=== PATIENT | female | born 1980 | race Caucasian/White ===

== ENCOUNTER 2018-10-26 20:51 | Inpatient (IN) | payer OTHER ==
[~2018-10-26] VITALS: Ht 162.6 cm; Wt 78.6 kg
[2018-10-26 21:32] VITALS: BP 133/79; PULSE 79; RESP 18
[2018-10-26 21:44] VITALS: Ht 162.6 cm; Wt 78.6 kg
[2018-10-26] MEDS ORDERED: DOCUSATE SODIUM 100 MG CAP PO PRN (22:00)
[2018-10-26] MEDS ORDERED: ONDANSETRON 4 MG INJ IV PRN (22:00)
[2018-10-26] MEDS ORDERED: ACETAMINOPHEN 325 MG TAB PO PRN (22:00)
[2018-10-26] MEDS ORDERED: BISACODYL (EC) 5 MG TAB PO PRN (22:00)
[2018-10-26] MEDS ORDERED: NACL 0.9% 3 ML SYG IV SCH (22:00)
--- NOTE | 2018-10-26 22:08 | HP ---
Date/Time of Note Date/Time of Note DATE: 10/26/18 TIME: 22:08 Assessment/Plan VTE Prophylaxis SCD applied (from Nsg): Yes Pharmacological prophylaxis: NA/contraindicated Pharm contraindication: low risk/ambulating Assessment/Plan Hospital Course This is a 37-year female being admitted to the telemetry floor for: #1 suspect acute hypovolemic hyponatremia: Secondary to gastrointestinal losses. Patient did receive IV fluid hydration at the transfer facility, will repeat BMP level stat and then every 4 hours. Will reinstitute fluids as indicated. Her mucous membranes are dry. Urine sodium, urine osmoles. #2 hypokalemia: Likely secondary to gastrointestinal losses. She did receive repletion prior to transfer, will repeat BMP and reassess electrolytes. #3 suspect gastroenteritis: Likely viral. She has not had any nausea vomiting or diarrhea since going to the ER. Brendafran for nausea. Will monitor for any signs of fevers. Will initiate a clear liquid diet advance as tolerated. #4 obesity: We will check hemoglobin A 1C, lipid panel, TSH #5 History of depression: Currently patient is not on any medications. Will need to confirm with the patient in the a.m. #6 hypertension: Patient did present with blood pressures in the systolic of 178 at the transferring hospital, will monitor blood pressures very closely. And institute blood pressure medications if indicated. #7 DVT GI prophylaxis: SCDs, no GI prophylaxis indicated Further treatment strategy will be implemented as per the clinical course. If repeat are within acceptable values and patient remained stable likely can gin ngrade to MedSurg in the a.m. HPI/ROS Admit Date/Time Admit Date/Time Oct 26, 2018 at 21:13 Hx of Present Illness Chief complaint: Abdominal pain, nausea vomiting diarrhea This is a 37-year-old female who presented to [facility] with complaints of abdominal pain with nausea and vomiting. Patient has a history of bipolar depression and hypertension. She had originally come to the emergency department today before with a chief complaint of insomnia and at that time was given prescription for Atarax. She returned with nausea vomiting diarrhea and generalized abdominal pain. She denies any fevers chills or dysuria. Denies any vaginal bleeding. Patient's laboratory values did show a potassium of 2.8 and sodium of 117. Her recent laboratory work-up showed a sodium of 139. She was given IV fluid hydration with normal saline and IV repletion for potassium and was also given IV magnesium. Patient's vitals were blood pressure of 178/107/pulse 77/respirations 18/temperature 98 F/SPO2 100% on room air. Upon my examination of [facility] patient reports that she is feeling better. She denies any eating out food recently and denies any sick contacts. Denies any fevers. Pertinent laboratory findings the transfer facility please see chart for full details: CBC: White blood cells 9.9/hemoglobin 12.5/hematocrit 36.9/platelets 281 BMP shows sodium of 117 potassium of 2.8 chloride of 82 CO2 of 20 anion gap 15 BUN of 5 creatinine is 0.55 Negative urine test Allergies: NKDA medications: Unknown ROS Const: As per HPI Eyes : No pain discharge or redness or change in visual acuity ENT: No pain, sore throat, congestion, congestion, dysphagia or discharge Respiratory: No shortness of breath, cough, sputum, wheezing, or pleuritic pain Cardiovascular: No chest pain, palpitation, PND, or edema GI : As per HPI Genitourinary: No dysuria, hematuria, flank pain , discharge or CVA tenderness Musculoskeletal: No joint pain, back pain, neck pain, restricted range of motion in neck or joints Skin: No rash, bruising or hives Neuro: No headache, dizziness, syncope, seizure, focal weakness Endocrine: No polyuria, polydipsia, temperature intolerance Psych: No hallucination, depression, anxiety or suicidal ideation PMH/Family/Social Past Medical History IUD, history of depression, history of SVT status post cardioversion in 2006 history of cervical dysplasia, hypertension Medications Current Medications IV Flush (NS 3 ml) 3 ml PER PROTOCOL IV ; Start 10/26/18 at 22:00; Status UNV Ondansetron HCl (Zofran Inj) 4 mg Q6H PRN IV NAUSEA/VOMITING; Start 10/26/18 at 22:00; Status UNV Acetaminophen (Tylenol Tab) 650 mg Q6H PRN PO .PAIN 1-3 OR TEMP; Start 10/26/18 at 22:00; Status UNV Docusate Sodium (Colace) 100 mg Q12H PRN PO .CONSTIPATION; Start 10/26/18 at 22:00; Status UNV Bisacodyl (Dulcolax) 5 mg DAILY PRN PO .CONSTIPATION; Start 10/26/18 at 22:00; Status UNV Coded Allergies: No Known Allergy (Unverified , 10/26/18) Past Surgical History Cardioversion in 2006, LEEP in 2006 for cervical dysplasia Family History Significant Family History: no pertinent family hx Social History Alcohol Use: none Smoking Status: Never smoker Drug Use: none Exam/Review of Systems Vital Signs Vitals Vital Signs Date Temp Pulse Resp B/P (MAP) Pulse Ox O2 O2 Flow FiO2 Time Delivery Rate 10/26/18 97.9 79 18 133/79 100 Room Air 21:32 (97) Exam Exam General: Patient is a pleasant female currently lying in bed in no acute distress HEENT: Atraumatic, normocephalic. The pupils are equal, round and reactive. Extraocular motor are intact, mucous membranes dry Neck: Supple with full range of motion. No rigidity or meningismus Chest: Nontender Lungs: Clear to auscultation bilaterally no crackles rales or wheezing Heart: Normal S1-S2, Regular rhythm and rate. No murmur, S3, or S4 Abdomen: Obese, soft , mild discomfort on palpation, nondistended , bowel sounds are present. No guarding no rebound tenderness , No masses or organomegaly. No costovertebral temporal angle mass Extremities: Normal to inspection, no edema no cyanosis Neurologic: Normal mental status, speech normal, cranial nerves II through XII are intact, motor and sensory are intact, no focal weakness LINCOLN KANG Oct 26, 2018 22:08
[2018-10-27] VITALS (10 sets, daily range): BP systolic 100–140; BP diastolic 61–88; PULSE 56–78; RESP 16–19
--- NOTE | 2018-10-27 10:25 | PDOCDIS ---
Discharge Instructions DIAGNOSIS Discharge Diagnosis Diarrhea CONDITION [id number] Patient Condition: [id number] Stable FOLLOW UP/APPOINTMENTS Follow-up Plan Return to the hospital if you are having any concerning symptoms JENN HARRIS MD Oct 27, 2018 10:25
--- NOTE | 2018-10-27 15:06 | DS ---
Date/Time of Note Date/Time of Note DATE: 10/27/18 TIME: 15:05 Discharge Summary Admission/Discharge Info Admit Date/Time Oct 26, 2018 at 21:13 Discharge Date/Time Discharge Diagnosis Diarrhea Patient Condition: Stable Hospital Course Patient was transferred from outside facility for management of hypokalemia and hyponatremia which occurred in setting of gastroenteritis. When she arrived here, electrolytes wnl. GI symptoms resolved. She requested to be discharged. She will follow up with PMD as an outpatient Home Meds No Active Prescriptions or Reported Meds Follow-up Plan Return to the hospital if you are having any concerning symptoms Primary Care Provider Not On Staff Doctor Pending Labs Laboratory Tests Test 10/26/18 22:25 10/27/18 00:25 10/27/18 02:32 10/27/18 05:13 White Blood 8.1 Count 10^3/ul (4.8-10 .8) Red Blood 4.79 Count 10^6/ul (4.20-5 .40) Hemoglobin 13.2 g/dl (12.0-16.0 ) Hematocrit 38.1 % (37.0-47.0) Mean 79.5 Corpuscular fl (82.0-101.0) Volume Mean 27.6 Corpuscular pg (29.0-33.0) Hemoglobin Mean 34.6 Corpuscular g/dl (32.0-37.0 Hemoglobin Conc ) ent Red Cell 13.7 Distribution % (11.5-14.5) Width Platelet Count 297 10^3/UL (140-41 5) Mean Platelet 10.3 Volume fl (7.4-10.4) Immature 0.600 Granulocytes % % (0.001-0.429) Neutrophils % 61.2 % (39.0-77.0) Lymphocytes % 27.9 % (15.0-51.0) Monocytes % 8.9 % (0.0-11.0) Eosinophils % 0.9 % (0.0-7.0) Basophils % 0.5 % (0.0-2.0) Nucleated Red 0.0 Blood Cells % /100WBC (0.0-0. 0) Immature 0.050 Granulocytes # 10^3/ul (0.0-0. 031) Neutrophils # 5.0 10^3/ul (1.6-7. 5) Lymphocytes # 2.3 10^3/ul (0.8-2. 9) Monocytes # 0.7 10^3/ul (0.3-0. 9) Eosinophils # 0.1 10^3/ul (0.0-0. 5) Basophils # 0.0 10^3/ul (0.0-0. 1) Nucleated Red 0.0 Blood Cells # 10^3/ul (0.0-0. 0) Sodium Level 139 139 141 mmol/L (135-144 mmol/L (135-14 mmol/L (135-14 ) 4) 4) Potassium 4.2 4.3 4.6 Level mmol/L (3.5-5.1 mmol/L (3.5-5. mmol/L (3.5-5. ) 1) 1) Chloride Level 109 108 111 mmol/L (97-110) mmol/L (97-110 mmol/L (97-110 ) ) Carbon Dioxide 22 21 24 Level mmol/L (21-31) mmol/L (21-31) mmol/L (21-31) Anion Gap 8 (5-13) 10 (5-13) 6 (5-13) Blood Urea 10 mg/dl (7-20) 10 10 Nitrogen mg/dl (7-20) mg/dl (7-20) Creatinine 0.52 0.49 0.53 mg/dl (0.44-1.0 mg/dl (0.44-1. mg/dl (0.44-1. 0) 00) 00) Est Glomerular > 60 > 60 > 60 Filtrat mL/min (>60) mL/min (>60) mL/min (>60) Rate mL/min Glucose Level 105 98 95 mg/dl (70-220) mg/dl (70-220) mg/dl (70-220) Osmolality 285 mOsm/kg (280-29 5) Calcium Level 8.6 8.0 8.6 mg/dl (8.4-10.2 mg/dl (8.4-10. mg/dl (8.4-10. ) 2) 2) Urine Color YELLOW (YELLOW ) Urine Clarity CLEAR (CLEAR) Urine pH 6.0 (5.0-9.0) Urine Specific 1.009 (1.003-1 [place] .030) Urine Ketones NEGATIVE mg/dL (NEGATIV E) Urine Nitrite NEGATIVE mg/dL (NEGATIV E) Urine NEGATIVE Bilirubin mg/dL (NEGATIV E) Urine NEGATIVE Urobilinogen mg/dL (NEGATIV E) Urine Leukocyte NEGATIVE Mari/u Esterase l Urine 0 /HPF (0-5) Microscopic RBC Urine 1 /HPF (0-5) Microscopic WBC Urine Bacteria FEW /HPF (NONE SEEN) Urine 1+ Hemoglobin mg/dL (NEGATIV E) Urine 280 Osmolality mOsm/kg (250-1 200) Urine Random < 13 Sodium mmol/L (30-90) Urine Glucose NEGATIVE mg/dL (NEGATIV E) Urine Total NEGATIVE Protein mg/dl (NEGATIV E) Magnesium 2.9 Level mg/dl (1.7-2.5 ) Triglycerides 143 Level mg/dl (0-149) Cholesterol 171 Level mg/dl (100-200 ) LDL 105 mg/dl Cholesterol, Calculated HDL 37 Cholesterol mg/dl (34-82) Cholesterol/HDL 4.6 RATIO Ratio Thyroid 4.930 Stimulating MIU/L (0.465-4 Hormone (TSH) .680) JENN HARRIS MD Oct 27, 2018 15:06
== END 2018-10-27 15:51 | disposition home or self-care (01) | DRG 641 ==
LOC: 6WM 21:13
PROVIDERS: ADMIT Internal Medicine; ATTEND Internal Medicine
DX: E87.6 Hypokalemia (principal); E87.1 Hypo-osmolality and hyponatremia; K52.9 Noninfective gastroenteritis and colitis, unspecified; I10 Essential (primary) hypertension; F31.9 Bipolar disorder, unspecified
CPT/HCPCS: 80048; 80061; 81001; 82306; 83735; 83930; 83935; 84300; 84443; 85025; 87081

== ENCOUNTER 2018-10-31 00:52 | Emergency (ER) | payer OTHER ==
[~2018-10-31] VITALS: Ht 162.6 cm; Wt 80.5 kg
[2018-10-31 00:54] VITALS: Ht 162.6 cm; Wt 80.5 kg
[2018-10-31] MEDS ORDERED: ACETAMINOPHEN 500 MG TAB PO STA (02:39)
[2018-10-31] MEDS ORDERED: ONDANSETRON (ODT) 4 MG TAB ODT STA (02:39)
--- NOTE | 2018-10-31 02:39 | ERD ---
ER Documentation Chief Complaint Chief Complaint abdominal pain/vomiting/diarrhea x 1 day HPI This is a 37-year-old female presents here to emerge department with multiple complaints including abdominal pain, vomiting, diarrhea for about a day, diarrhea. Stated that she was at [facility] a couple of days ago, given IV fluids, blood works was done and was discharged, was told that she has a virus. LMP: September 12, 2018. G4, . Denies headache, head injury, loss of consciousness, dizziness, neck pain, neck stiffness, throat pain, difficulty swallowing, difficulty breathing lying flat, shoulder pain, chest pain, back pain, abdominal pain, nausea, vomiting, constipation, diarrhea, urinary symptoms, or possibility being , loss of bowel and bladder control, trauma, injury, falls, difficulty walking due to pain, numbness or tingling sensation, calf pain, recent travel, recent major surgery in the last 3 weeks, calf pain, recent long travel, recent exposure to any illness, recent antibiotic use in the last 3 months, fever, chills, seizures. Past medical history: Hypertension. Bipolar. Surgical history: Denies. Social: Denies smoking, use of alcoholic beverages, use of illegal drugs. ROS All systems reviewed and are negative except as per history of present illness. Medications Home Meds Active Scripts Ondansetron Hcl* (Zofran*) 4 Mg Tablet, 4 MG PO Q8H PRN for NAUSEA AND/OR VOMIT ING, #30 TAB Prov:PASILABAN,KLAR F 10/31/18 Ibuprofen* (Motrin*) 800 Mg Tab, 800 MG PO Q6H PRN for PAIN AND OR ELEVATED TEMP, #30 TAB Prov:PASILABAN,KLAR F 10/31/18 Allergies Allergies: Coded Allergies: No Known Allergy (Unverified , 10/26/18) PMhx/Soc History of Surgery: No Anesthesia Reaction: No Hx Neurological Disorder: No Hx Respiratory Disorders: No Hx Cardiac Disorders: Yes (SVT, HTN) Hx Psychiatric Problems: Yes (Bipolar, Post Depression) Hx Miscellaneous Medical Probl: Yes (Post Depression) Hx Alcohol Use: No Hx Substance Use: No Hx Tobacco Use: No Smoking Status: Never smoker Physical Exam Vitals Vital Signs Date Temp Pulse Resp B/P (MAP) Pulse Ox O2 O2 Flow FiO2 Time Delivery Rate 10/31/18 98.4 70 17 186/108 95 Room Air 04:04 (134) 10/31/18 98.4 86 18 148/94 97 00:54 (112) Physical Exam Const: No acute distress Head: Atraumatic Eyes: Normal Conjunctiva. Color appears normal for ethnicity. ENT: Normal External Ears, Nose and Mouth. Neck: Full range of motion. No meningismus. Resp: Clear to auscultation bilaterally Cardio: Regular rate and rhythm, no murmurs Abd: Soft, non tender, non distended. Normal bowel sounds. Negative Huddleston sign. Negative [place] sign (heel jar test). Negative psoas sign. Negative Rovsing sign. Able to jump 10 times without developing lower abdominal pain. No CVA tenderness. Ambulatory with steady gait and without pain to abdomen. Skin: No petechiae or rashes. Color appears normal for ethnicity. No skin tenting. No signs of severe dehydration. Back: No midline or flank tenderness Ext: No cyanosis, or edema Neur: Awake and alert. No neurological deficits. Psych: Normal Mood and Affect Results 24 hrs Laboratory Tests Test 10/31/18 03:15 Bedside Urine pH (LAB) 6.0 Bedside Urine Protein (LAB) Negative Bedside Urine Glucose (UA) Negative Bedside Urine Ketones (LAB) Negative Bedside Urine Blood Trace-lysed Bedside Urine Nitrite (LAB) Negative Bedside Urine Leukocyte Esterase (L Negative POC Beta HCG, Qualitative NEGATIVE Current Medications Medications Dose Sig/Evette Start Time Status Last (Trade) Ordered Route PRN Stop Time Admin Dose Reason Admin Ondansetron 4 mg ONCE STAT 10/31/18 DC 10/31/18 HCl (Zofran ODT 02:39 03:22 Odt) 10/31/18 02:40 Famotidine 40 mg ONCE ONCE 10/31/18 DC 10/31/18 (Pepcid) PO 03:00 03:24 10/31/18 03:01 40 ml ONCE ONCE 10/31/18 DC 10/31/18 Miscellaneous PO 03:00 03:22 Medication 10/31/18 03:01 (Gi Cocktail (2)) 500 mg ONCE STAT 10/31/18 DC 10/31/18 Acetaminophen PO 02:39 03:23 (Tylenol 10/31/18 02:41 Tab) Nicardipine 30 mg ONCE ONCE 10/31/18 DC 10/31/18 HCl PO 04:30 04:09 (Cardene) 10/31/18 04:30 Procedures/MDM Diagnostic tests: POC urine : Negative. POC urine dipstick: Reviewed. Treatment: P.o. challenge. Zofran ODT. Pepcid. GI cocktail. Cardene. Re-evaluation: Negative Huddleston sign. Negative [place] sign (heel jar test). Negative psoas sign. Negative Rovsing sign. No CVA tenderness. Able to jump 10 times without developing abdominal pain. Romberg test is negative. No neurological deficit. Stated that she feels much better this time and that she is ready to go home. Stated that she is comfortable to go home. Differential diagnosis I have low suspicion for sepsis, pericarditis, diverticulitis, bowel obstruction, appendicitis. This case was discussed with my supervising physician, Dr. Shlomo Verma who agreed with my medical decision making. Final diagnosis: Abdominal pain. Diarrhea. Prescription: Motrin. Zofran. Follow-up with PCP in the next 24-48 hours. Come back here in the emergency department for any new symptoms or any worsening symptoms. All questions and concerns were answered. Patient and family members verbalized understanding and agreed with plan of care. Hemodynamically stable on discharge. Departure Diagnosis: Primary Impression: Diarrhea Condition: Stable Additional Instructions: Follow-up with PCP in the next 24-48 hours. Come back here in the emergency department for any new symptoms or any worsening symptoms. REGINE REYES Oct 31, 2018 02:39
[2018-10-31] MEDS ORDERED: LIDOCAINE/MYLANTA 40 ML BTL PO ONE (03:00)
[2018-10-31] MEDS ORDERED: FAMOTIDINE 20 MG TAB PO ONE (03:00)
[2018-10-31] MEDS ORDERED: ONDA4TAB8 PO (03:01)
[2018-10-31] MEDS ORDERED: IBUP800T48 PO (03:01)
[2018-10-31 04:04] VITALS: BP 186/108; PULSE 70; RESP 17
[2018-10-31] MEDS ORDERED: NICARDipine HCL 30 MG CAPSULE PO ONE (04:30)
[2018-11-01] MEDS ORDERED: IBUP-1542 PO (11:55)
[2018-11-09] MEDS ORDERED: ONDA4TAB14 PO (12:39)
== END 2018-10-31 04:12 | disposition home or self-care (01) ==
LOC: FTE 00:52
DX: R19.7 Diarrhea, unspecified (principal); I10 Essential (primary) hypertension; R11.10 Vomiting, unspecified
CPT/HCPCS: 81003; 81025; Z7502; Z7610; 99283

== ENCOUNTER 2018-11-01 07:55 | Emergency (ER) | payer OTHER ==
[~2018-11-01] VITALS: Ht 162.6 cm; Wt 80.7 kg
[~2018-11-01 07:55] MED LIST: IBUP800T48 PO; ONDA4TAB8 PO
[2018-11-01 08:03] VITALS: Ht 162.6 cm; Wt 80.7 kg
[2018-11-01] MEDS ORDERED: LIDOCAINE/MYLANTA 40 ML BTL PO STA (08:58)
[2018-11-01] MEDS ORDERED: ONDANSETRON 4 MG INJ IV STA (08:58)
[2018-11-01] MEDS ORDERED: morphine 2 MG INJ IV STA (08:58)
[2018-11-01] MEDS ORDERED: SOD CHLORIDE 0.9% 1,000 ML IV STA (08:58)
[2018-11-01] MEDS ORDERED: DICYCLOMINE 10 MG CAP PO ONE (09:00)
[2018-11-01] MEDS ORDERED: IBUP-1542 PO (11:55)
[2018-11-01 11:58] VITALS: BP 165/89; PULSE 69; RESP 18
--- NOTE | 2018-11-01 11:58 | ERD ---
ER Documentation Chief Complaint Chief Complaint diarrhea, vomitting, dizziness, painful urination x4 days HPI 37-year-old female presents to ED complaining of stomach pain x4 days. She reports that she is experiencing nausea, vomiting, diarrhea as well. She reports she vomited twice this morning and had one episode of diarrhea this morning as well. She states that she is eating okay and ate breakfast this morning. She denies any fevers or chills. She reports the pain to be 7 out of 10 intensity and achy in character. She reports that her pain goes to her back as well unspecifically. Past medical history of bipolar, hypertension ROS All systems reviewed and are negative except as per history of present illness. Medications Home Meds Active Scripts Ondansetron Hcl* (Zofran*) 4 Mg Tablet, 4 MG PO Q8H PRN for NAUSEA AND/OR VOMITING, #30 TAB Prov:REGINE REYES F 11/02/18 Acetaminophen* (Tylophen*) 500 Mg Capsule, 1 CAP PO Q6H PRN for PAIN AND OR ELEVATED TEMP, #20 CAP Prov:DARCIILABANREGINE 11/02/18 Ibuprofen* (Motrin*) 600 Mg Tab, 600 MG PO Q6H PRN for PAIN AND OR ELEVATED TEMP, #30 TAB Prov:TRINY ARZOLA PA-C 11/01/18 Ondansetron Hcl* (Zofran*) 4 Mg Tablet, 4 MG PO Q8H PRN for NAUSEA AND/OR VOMITING, #30 TAB Prov:REGINE REYES F 10/31/18 Ibuprofen* (Motrin*) 800 Mg Tab, 800 MG PO Q6H PRN for PAIN AND OR ELEVATED TEMP, #30 TAB Prov:DARCIILABANKAMRONAR F 10/31/18 Allergies Allergies: Coded Allergies: No Known Allergy (Unverified , 10/26/18) PMhx/Soc History of Surgery: No Anesthesia Reaction: No Hx Neurological Disorder: No Hx Respiratory Disorders: No Hx Cardiac Disorders: Yes (SVT, HTN) Hx Psychiatric Problems: Yes (Bipolar, Post Depression) Hx Miscellaneous Medical Probl: Yes (Post Depression) Hx Alcohol Use: No Hx Substance Use: No Hx Tobacco Use: No FmHx Family History: No diabetes Physical Exam Vitals Vital Signs Date Temp Pulse Resp B/P (MAP) Pulse Ox O2 O2 Flow FiO2 Time Delivery Rate 11/01/18 69 18 165/89 99 Room Air 11:58 (114) 11/01/18 97.8 67 18 189/101 99 08:03 (130) Physical Exam Const: No acute distress Head: Atraumatic Eyes: Normal Conjunctiva ENT: Normal External Ears, Nose and Mouth. Neck: Full range of motion. Resp: Clear to auscultation bilaterally Cardio: Regular rate and rhythm, Abd: Soft, nonspecific tenderness all around, non distended. Normal bowel sounds. No rebounding, no guarding. No bruising Skin: No petechiae or rashes Back: Slight tenderness to the low back bilaterally Ext: No cyanosis, or edema Neur: Awake and alert Psych: Normal Mood and Affect Result Diagram: 11/01/1890211/01/18902 Results 24 hrs Laboratory Tests Test 11/01/18 09:03 11/01/18 09:12 White Blood Count 7.0 10^3/ul Red Blood Count 5.26 10^6/ul Hemoglobin 14.4 g/dl Hematocrit 43.0 % Mean Corpuscular Volume 81.7 fl Mean Corpuscular Hemoglobin 27.4 pg Mean Corpuscular Hemoglobin Concent 33.5 g/dl Red Cell Distribution Width 13.4 % Platelet Count 364 10^3/UL Mean Platelet Volume 9.3 fl Immature Granulocytes % 0.400 % Neutrophils % 62.0 % Lymphocytes % 30.5 % Monocytes % 5.4 % Eosinophils % 0.7 % Basophils % 1.0 % Nucleated Red Blood Cells % 0.0 /100WBC Immature Granulocytes # 0.030 10^3/ul Neutrophils # 4.4 10^3/ul Lymphocytes # 2.2 10^3/ul Monocytes # 0.4 10^3/ul Eosinophils # 0.1 10^3/ul Basophils # 0.1 10^3/ul Nucleated Red Blood Cells # 0.0 10^3/ul Urine Color COLORLESS Urine Clarity CLEAR Urine pH 8.0 Urine Specific [place] 1.001 Urine Ketones NEGATIVE mg/dL Urine Nitrite NEGATIVE mg/dL Urine Bilirubin NEGATIVE mg/dL Urine Urobilinogen NEGATIVE mg/dL Urine Leukocyte Esterase NEGATIVE Mari/ul Urine Microscopic RBC 0 /HPF Urine Microscopic WBC 0 /HPF Urine Hemoglobin 1+ mg/dL Urine Glucose NEGATIVE mg/dL Urine Total Protein NEGATIVE mg/dl Sodium Level 141 mmol/L Potassium Level 3.9 mmol/L Chloride Level 102 mmol/L Carbon Dioxide Level 30 mmol/L Anion Gap 9 Blood Urea Nitrogen 9 mg/dl Creatinine 0.63 mg/dl Est Glomerular Filtrat Rate mL/min > 60 mL/min Glucose Level 93 mg/dl Calcium Level 9.5 mg/dl Total Bilirubin 1.5 mg/dl Direct Bilirubin 0.00 mg/dl Indirect Bilirubin 1.5 mg/dl Aspartate Amino Transf (AST/SGOT) 30 IU/L Alanine Aminotransferase (ALT/SGPT) 34 IU/L Alkaline Phosphatase 120 IU/L Total Protein 8.0 g/dl Albumin 4.6 g/dl Globulin 3.40 g/dl Albumin/Globulin Ratio 1.35 Lipase 602 U/L POC Beta HCG, Qualitative NEGATIVE Current Medications Medications Dose Sig/Evette Start Time Status Last (Trade) Ordered Route PRN Stop Time Admin Dose Reason Admin Sodium 1,000 ml @ Q1H STAT 11/01/18 DC 11/01/18 Chloride 1,000 mls/hr IV 08:58 11/01/18 09:56 09:57 Morphine 2 mg ONCE STAT 11/01/18 DC 11/01/18 Sulfate IV 08:58 11/01/18 09:55 (morphine) 09:01 Ondansetron 4 mg ONCE STAT 11/01/18 DC 11/01/18 HCl (Zofran IV 08:58 11/01/18 09:56 Inj) 09:01 40 ml ONCE STAT 11/01/18 DC 11/01/18 Miscellaneous PO 08:58 11/01/18 09:55 Medication 09:01 (Gi Cocktail (2)) Dicyclomine 20 mg ONCE ONCE 11/01/18 DC 11/01/18 HCl PO 09:00 11/01/18 09:56 (Bentyl) 09:01 Procedures/MDM ED COURSE: The patient was stable throughout ED course. I kept the patient informed of laboratory and diagnostic imaging results throughout the ED course. DIAGNOSTIC IMAGING: Read by radiologist. PROCEDURE: Ultrasound gallbladder CLINICAL INDICATION: abdominal pain TECHNIQUE: Castaneda scale, color flow and Doppler ultrasound images of the abdomen. COMPARISON: None FINDINGS: Pancreas: The head and body of the pancreas are unremarkable. Tail is obscured by shadowing bowel gas. Vasculature: Aorta and inferior vena cava are normal in caliber. Liver: Echogenic appearance consistent with diffuse steatosis. No focal hepatic lesions otherwise demonstrated. Normal directional flow toward the liver d emonstrated in the main portal vein. Gallbladder: Negative for gallstones. No wall thickening or pericholecystic fluid. Biliary system: No significant dilatation of the intrahepatic or extrahepatic biliary system. Common bile duct measures mm. Right Kidney: Measures 11.2 x 4.5 x 4.3 cm. There is mild right hydronephrosis. No intrarenal calcifications identified. No evidence of abnormal perinephric fluid. Additional findings: None IMPRESSION: 1. Mild right hydronephrosis. No renal stones identified. 2. Mild hepatic steatosis. 3. Negative for gallstones. RPTAT: [facility] Physician Hugo Date Time Electronically viewed and signed by Physician Hugo on 11/01/2018 10:06 Pt was ordered a CT scan but she denied the CT scan and wanted to leave PROCEDURES: IV fluids MEDICATIONS GIVEN: IV fluids, Bentyl, Zofran, morphine Patient tolerated medication well with no adverse reactions. Patient reported improvement in pain. MEDICAL DECISION MAKING: Patient is a 37-year-old female complaining of abdominal pain and nausea, vomiting, diarrhea x4 days. She states that her pain is 7 out of 10 intensity and all around her abdomen. She also reports low back tenderness. On physical exam her abdominal pain was unspecific. Patient showed no signs of guarding, no rebound tenderness, no peritoneal signs. Patient was given IV fluids and medications to help her pain and nausea vomiting symptoms. When patient was rechecked upon she stated that she felt much better. Ultrasound was done which showed some mild hydronephrosis. After discussing with Dr. Barker the attending physician we decided to order CT scan however the patient refused and signed an AMA form. Patient wanted to leave immediately. Abdomen is soft, NTTP at discharge. H&P and other data not c/w emergent process (eg. appendicitis, incarcerated hernia, perforated viscus, peritonitis, torsion). Vital signs were reviewed. Patient is afebrile. Patient was not hypoxic. Patient was hemodynamically stable. Patient was told to follow up with primary care for further care and management and to return back to the ED if symptoms persist or worsen. PRESCRIPTION: Tylenol DISCHARGE: At this time, patient is stable for discharge and outpatient management. I have instructed the patient to follow-up with his/her primary care physician in 1-2 days. I have discussed with the patient the possibility of needing to see a spec ialist for further workup and imaging studies if symptoms persist. I have instructed the patient to promptly return to the ER for any new or worsening symptoms including increased pain, fever, nausea, vomiting, weakness or LOC. The patient expressed understanding of and agreement with this plan. All questions were answered. Home care instructions were provided. Disclaimer: Inadvertent spelling and grammatical errors are likely due to EHR/dictation software use and do not reflect on the overall quality of patient care. Also, please note that the electronic time recorded on this note does not necessarily reflect the actual time of the patient encounter. Departure Diagnosis: Primary Impression: Pancreatitis, acute Pancreatitis type: unspecified pancreatitis type Acute pancreatitis complication: unspecified Qualified Codes: K85.90 - Acute pancreatitis without necrosis or infection, unspecified Additional Impression: Hydronephrosis Hydronephrosis type: unspecified Qualified Codes: N13.30 - Unspecified hydronephrosis Condition: Fair Patient Instructions: Pancreatitis Referrals: [facility] YOU HAVE RECEIVED A MEDICAL SCREENING EXAM AND THE RESULTS INDICATE THAT YOU DO NOT HAVE A CONDITION THAT REQUIRES URGENT TREATMENT IN THE EMERGENCY DEPARTMENT. FURTHER EVALUATION AND TREATMENT OF YOUR CONDITION CAN WAIT UNTIL YOU ARE SEEN IN YOUR DOCTORS OFFICE WITHIN THE NEXT 1-2 DAYS. IT IS YOUR RESPONSIBILITY TO MAKE AN APPOINTMENT FOR FOLOW-UP CARE. IF YOU HAVE A PRIMARY DOCTOR --you should call your primary doctor and schedule an appointment IF YOU DO NOT HAVE A PRIMARY DOCTOR YOU CAN CALL OUR PHYSICIAN REFERRAL HOTLINE AT IF YOU CAN NOT AFFORD TO SEE A PHYSICIAN YOU CAN CHOSE FROM THE FOLLOWING REPLACED BY [facility] [address] [place] [facility] [address] [facility] [address] [facility] [address] [facility] [address] [facility]. [facility] [address] [facility] [facility] YOU HAVE RECEIVED A MEDICAL SCREENING EXAM AND THE RESULTS INDICATE THAT YOU DO NOT HAVE A CONDITION THAT REQUIRES URGENT TREATMENT IN THE EMERGENCY DEPARTMENT. FURTHER EVALUATION AND TREATMENT OF YOUR CONDITION CAN WAIT UNTIL YOU ARE SEEN IN YOUR DOCTORS OFFICE WITHIN THE NEXT 1-2 DAYS. IT IS YOUR RESPONSIBILITY TO MAKE AN APPOINTMENT FOR FOLOW-UP CARE. IF YOU HAVE A PRIMARY DOCTOR --you should call your primary doctor and schedule and appointment IF YOU DO NOT HAVE A PRIMARY DOCTOR YOU CAN CALL OUR PHYSICIAN REFERRAL HOTLINE AT . IF YOU CAN NOT AFFORD TO SEE A PHYSICIAN YOU CAN CHOSE FROM THE FOLLOWING [facility] INSTITUTIONS: [facility] [address] [place] [address] [facility] [address] [place] [address] [facility] [address] [place] [address] Additional Instructions: Come back to the emergency department if symptoms persist or worsen. Call your primary care doctor TOMORROW for an appointment during the next 1-2 days.See the doctor sooner or return here if your condition worsens before your appointment time. TRINY ARZOLA PA-C Nov 01, 2018 11:58
[2018-11-02] MEDS ORDERED: ONDA4TAB8 PO (04:18)
[2018-11-02] MEDS ORDERED: ACET500C5 PO (04:18)
[2018-11-02] MEDS ORDERED: DICY10CA40 PO (09:56)
== END 2018-11-01 12:11 | disposition left against medical advice (07) ==
LOC: FTE 07:55
DX: K85.90 Acute pancreatitis without necrosis or infection, unspecified (principal); N13.30 Unspecified hydronephrosis
CPT/HCPCS: 36415; 76705; 80053; 81001; 81025; 83690; 85025; 96361; 96374; 96375; J2270; J2405; J7030; Z7502; Z7610

== ENCOUNTER 2018-11-01 23:45 | Emergency (ER) | payer OTHER ==
[~2018-11-01] VITALS: Ht 162.6 cm; Wt 81.6 kg
[~2018-11-01 23:45] MED LIST changes: +IBUP-1542 PO
[2018-11-02 00:28] VITALS: Ht 162.6 cm; Wt 81.6 kg
--- NOTE | 2018-11-02 02:23 | ERD ---
ER Documentation Chief Complaint Chief Complaint C/O AP, NAUSEA, CARBONE AND DIZZINESS SINCE YESTERDAY HPI This is a 37-year-old female presents emergency department with complaints of nausea, headache, dizziness, abdominal pain since . Was seen earlier this morning by another provider and was discharged with final diagnosis of pancreatitis. Denies headache, head injury, loss of consciousness, dizziness, neck pain, neck stiffness, throat pain, difficulty swallowing, difficulty breathing lying flat, shoulder pain, chest pain, back pain, abdominal pain, nausea, vomiting, constipation, diarrhea, urinary symptoms, or possibility being , loss of bowel and bladder control, trauma, injury, falls, difficulty walking due to pain, numbness or tingling sensation, calf pain, recent travel, recent major surgery in the last 3 weeks, calf pain, recent long travel, recent exposure to any illness, recent antibiotic use in the last 3 months, fever, chills, seizures. Past medical history: Hypertension. Bipolar. Surgical history: Denies. Social: Denies smoking, use of alcoholic beverages, use of illegal drugs. ROS All systems reviewed and are negative except as per history of present illness. Medications Home Meds Active Scripts Hydroxyzine Hcl* (Hydroxyzine Hcl*) 50 Mg Tablet, 50 MG PO Q6H PRN for ANXIETY, #30 TAB Prov:REGINE REYES 11/04/18 Ibuprofen* (Motrin*) 800 Mg Tab, 800 MG PO Q8 PRN for PAIN AND OR ELEVATED TEMP, #30 TAB Prov:REGINE REYES 11/04/18 Phenazopyridine Hcl* (Pyridium*) 200 Mg Tab, 200 MG PO TID PRN for URINARY PAIN, #6 TAB Prov:REGINE REYES 11/04/18 Dicyclomine HCl (Dicyclomine HCl) 10 Mg Capsule, 10 MG PO TID PRN for ABDOMINAL CRAMPING, #20 CAP Prov:ANDRIY MOSELEY MD 11/02/18 Ondansetron Hcl* (Zofran*) 4 Mg Tablet, 4 MG PO Q8H PRN for NAUSEA AND/OR VOMITING, #30 TAB Prov:REGINE REYES 11/02/18 Acetaminophen* (Tylophen*) 500 Mg Capsule, 1 CAP PO Q6H PRN for PAIN AND OR ELEVATED TEMP, #20 CAP Prov:PASILABAN,KLAR F 11/02/18 Ibuprofen* (Motrin*) 600 Mg Tab, 600 MG PO Q6H PRN for PAIN AND OR ELEVATED TEMP, #30 TAB Prov:TRINY ARZOLA PA-C 11/01/18 Ondansetron Hcl* (Zofran*) 4 Mg Tablet, 4 MG PO Q8H PRN for NAUSEA AND/OR VOMITING, #30 TAB Prov:REGINE REYES 10/31/18 Ibuprofen* (Motrin*) 800 Mg Tab, 800 MG PO Q6H PRN for PAIN AND OR ELEVATED TEMP, #30 TAB Prov:DARCIILAREGINE ZAMBRANO F 10/31/18 Allergies Allergies: Coded Allergies: No Known Allergy (Unverified , 10/26/18) PMhx/Soc History of Surgery: No Anesthesia Reaction: No Hx Neurological Disorder: No Hx Respiratory Disorders: No Hx Cardiac Disorders: Yes (SVT, HTN) Hx Psychiatric Problems: Yes (Bipolar, Post Depression) Hx Miscellaneous Medical Probl: Yes (Post Depression) Hx Alcohol Use: No Hx Substance Use: No Hx Tobacco Use: No Smoking Status: Never smoker Physical Exam Vitals Physical Exam Const: No acute distress Head: Atraumatic Eyes: Normal Conjunctiva ENT: Normal External Ears, Nose and Mouth. Neck: Full range of motion. No meningismus. Resp: Clear to auscultation bilaterally Cardio: Regular rate and rhythm, no murmurs Abd: Soft, non tender, non distended. Normal bowel sounds. No abdominal tenderness. Skin: No petechiae or rashes Back: No midline or flank tenderness Ext: No cyanosis, or edema Neur: Awake and alert Psych: Normal Mood and Affect. Not suicidal. Not homicidal. Has the capacity to decide for herself. Has good support system at home. Results 24 hrs Laboratory Tests Test 11/02/18 03:40 Urine Color COLORLESS Urine Clarity CLEAR Urine pH 7.0 Urine Specific [place] 1.002 Urine Ketones NEGATIVE mg/dL Urine Nitrite NEGATIVE mg/dL Urine Bilirubin NEGATIVE mg/dL Urine Urobilinogen NEGATIVE mg/dL Urine Leukocyte Esterase NEGATIVE Mari/ul Urine Microscopic RBC 0 /HPF Urine Microscopic WBC 0 /HPF Urine Squamous Epithelial Cells FEW /HPF Urine Hemoglobin 2+ mg/dL Urine Glucose NEGATIVE mg/dL Urine Total Protein NEGATIVE mg/dl Urine Test NEGATIVE Current Medications Medications Dose Sig/Evette Start Time Status Last (Trade) Ordered Route PRN Stop Time Admin Dose Reason Admin 500 mg ONCE STAT 11/02/18 DC 11/02/18 Acetaminophen PO 04:16 11/02/18 04:31 (Tylenol 04:18 Tab) Ondansetron 4 mg ONCE STAT 11/02/18 DC 11/02/18 HCl (Zofran ODT 04:16 11/02/18 04:30 Odt) 04:18 Famotidine 40 mg ONCE ONCE 11/02/18 DC 11/02/18 (Pepcid) PO 04:30 11/02/18 04:31 04:31 Procedures/MDM This case was discussed with supervising physician, Dr. Emily Zhou who agreed with my medical decision making that work-up is not necessary at this time. Diagnostic tests: POC urine : Negative. Urinalysis: Reviewed. Treatment: Tylenol. Zofran. Pepcid. Re-evaluation: Denies pain. Not suicidal. Not homicidal. Has the capacity to decide for herself. Has good support system at home. Patient and family members stated that they are comfortable to go home. Differential diagnosis I have low suspicion for sepsis, acute abdomen. Final diagnosis: Viral syndrome. Prescription: Pepcid. Antivert. Tylenol. Follow-up with PCP in the next 24-48 hours. Come back here in the emergency department for any new symptoms or any worsening symptoms. All questions and concerns were answered. Patient and family members verbalized understanding and agreed with plan of care. Hemodynamically stable on discharge. Departure Diagnosis: Primary Impression: Multiple complaints Additional Impression: Viral syndrome Condition: Stable Additional Instructions: Follow-up with PCP in the next 24-48 hours. Come back here in the emergency department for any new symptoms or any worsening symptoms. REGINE REYES Nov 02, 2018 02:23
[2018-11-02] MEDS ORDERED: ACETAMINOPHEN 500 MG TAB PO STA (04:16)
[2018-11-02] MEDS ORDERED: ONDANSETRON (ODT) 4 MG TAB ODT STA (04:16)
[2018-11-02] MEDS ORDERED: ACET500C5 PO (04:18)
[2018-11-02] MEDS ORDERED: ONDA4TAB8 PO (04:18)
[2018-11-02] MEDS ORDERED: FAMOTIDINE 20 MG TAB PO ONE (04:30)
[2018-11-02 04:32] VITALS: BP 181/103; PULSE 81; RESP 18
[2018-11-02] MEDS ORDERED: DICY10CA40 PO (09:56)
[2018-11-09] MEDS ORDERED: ONDA4TAB14 PO (12:39)
== END 2018-11-02 04:37 | disposition home or self-care (01) ==
LOC: FTE 23:45
DX: B34.9 Viral infection, unspecified (principal); I10 Essential (primary) hypertension
CPT/HCPCS: 81001; 84703; 87086; Z7502; Z7610; 99283

== ENCOUNTER 2018-11-02 07:36 | Emergency (ER) | payer OTHER ==
[~2018-11-02] VITALS: Ht 162.6 cm; Wt 79.7 kg
[~2018-11-02 07:36] MED LIST changes: +ACET500C5 PO
[2018-11-02 07:39] VITALS: Ht 162.6 cm; Wt 79.7 kg
--- NOTE | 2018-11-02 08:27 | ERD ---
ER Documentation Chief Complaint Chief Complaint Pt with c/o AP, diarrhea and "believes somebody poisened me yesterday" HPI 37-year-old female who presents to the emergency room complaining of multiple issues including mild headache, dry mouth, abdominal pain for at least 1 week. This is not the patient's fifth visit since October 26 for similar nonspecific related issues. Patient states that because of the symptoms she feels like somebody is giving her some medicine or possibly trying to poison her when she is sleeping at night. She lives with a roommate. Patient denies any auditory hallucinations, no suicidal or homicidal ideations. Patient denies underlying psychiatric illness. She cannot characterize her abdominal pain or headache. ROS All systems reviewed and are negative except as per history of present illness. Medications Home Meds Active Scripts Dicyclomine HCl (Dicyclomine HCl) 10 Mg Capsule, 10 MG PO TID PRN for ABDOMINAL CRAMPING, #20 CAP Prov:ANDRIY MOSELEY MD 11/02/18 Ondansetron Hcl* (Zofran*) 4 Mg Tablet, 4 MG PO Q8H PRN for NAUSEA AND/OR VOMITING, #30 TAB Prov:DARCIILABANKAMRONAR F 11/02/18 Acetaminophen* (Tylophen*) 500 Mg Capsule, 1 CAP PO Q6H PRN for PAIN AND OR ELEVATED TEMP, #20 CAP Prov:PASILABAN,KAMRONAR F 11/02/18 Ibuprofen* (Motrin*) 600 Mg Tab, 600 MG PO Q6H PRN for PAIN AND OR ELEVATED TEMP, #30 TAB Prov:TRINY ARZOLA PA-C 11/01/18 Ondansetron Hcl* (Zofran*) 4 Mg Tablet, 4 MG PO Q8H PRN for NAUSEA AND/OR VOMITING, #30 TAB Prov:PASILABANKAMRONAR F 10/31/18 Ibuprofen* (Motrin*) 800 Mg Tab, 800 MG PO Q6H PRN for PAIN AND OR ELEVATED TEMP, #30 TAB Prov:PASILABAN,KAMRONAR F 10/31/18 Allergies Allergies: Coded Allergies: No Known Allergy (Unverified , 10/26/18) PMhx/Soc History of Surgery: No Anesthesia Reaction: No Hx Neurological Disorder: No Hx Respiratory Disorders: No Hx Cardiac Disorders: Yes (SVT, HTN) Hx Psychiatric Problems: Yes (Bipolar, Post Depression) Hx Miscellaneous Medical Probl: Yes (Post Depression) Hx Alcohol Use: No Hx Substance Use: No Hx Tobacco Use: No FmHx Family History: No diabetes Physical Exam Vitals Vital Signs Date Temp Pulse Resp B/P (MAP) Pulse Ox O2 O2 Flow FiO2 Time Delivery Rate 11/02/18 97.7 80 20 161/110 97 07:39 (127) Physical Exam General: Well developed, well nourished, no acute distress Head: Normocephalic, atraumatic. Eyes: Pupils equally reactive, EOM intact ENT: Moist mucous membranes Neck: Supple, no lymphadenopathy Respiratory: Lungs clear bilaterally, no distress Cardiovascular: RRR, no murmurs, rubs, or gallops Abdominal: Soft, non-tender, non-distended, no peritoneal signs : Deferred MSK: No edema, no unilateral swelling, 5/5 strength Neurologic: Alert and oriented, moving all extremities, normal speech, no focal weakness, no cerebellar signs Skin: No rash Psych: Paranoid delusions but no suicidal or homicidal ideation, no auditory hallucinations Result Diagram: 11/02/1882711/02/18827 Results 24 hrs Laboratory Tests Test 11/02/18 08:28 11/02/18 09:02 White Blood Count 8.2 10^3/ul Red Blood Count 5.07 10^6/ul Hemoglobin 13.9 g/dl Hematocrit 41.0 % Mean Corpuscular Volume 80.9 fl Mean Corpuscular Hemoglobin 27.4 pg Mean Corpuscular Hemoglobin Concent 33.9 g/dl Red Cell Distribution Width 13.7 % Platelet Count 362 10^3/UL Mean Platelet Volume 9.8 fl Immature Granulocytes % 0.200 % Neutrophils % 58.5 % Lymphocytes % 33.8 % Monocytes % 5.9 % Eosinophils % 0.7 % Basophils % 0.9 % Nucleated Red Blood Cells % 0.0 /100WBC Immature Granulocytes # 0.020 10^3/ul Neutrophils # 4.8 10^3/ul Lymphocytes # 2.8 10^3/ul Monocytes # 0.5 10^3/ul Eosinophils # 0.1 10^3/ul Basophils # 0.1 10^3/ul Nucleated Red Blood Cells # 0.0 10^3/ul Sodium Level 139 mmol/L Potassium Level 3.6 mmol/L Chloride Level 102 mmol/L Carbon Dioxide Level 28 mmol/L Anion Gap 9 Blood Urea Nitrogen 7 mg/dl Creatinine 0.57 mg/dl Est Glomerular Filtrat Rate mL/min > 60 mL/min Glucose Level 99 mg/dl Calcium Level 8.8 mg/dl Total Bilirubin 1.6 mg/dl Direct Bilirubin 0.00 mg/dl Indirect Bilirubin 1.6 mg/dl Aspartate Amino Transf (AST/SGOT) 28 IU/L Alanine Aminotransferase (ALT/SGPT) 27 IU/L Alkaline Phosphatase 91 IU/L Total Protein 7.6 g/dl Albumin 4.3 g/dl Globulin 3.30 g/dl Albumin/Globulin Ratio 1.30 Lipase 73 U/L POC Beta HCG, Qualitative NEGATIVE Current Medications Medications Dose Sig/Evette Start Time Status Last (Trade) Ordered Route PRN Stop Time Admin Dose Reason Admin Dicyclomine 10 mg ONCE ONCE 11/02/18 DC 11/02/18 HCl PO 09:00 11/02/18 09:00 (Bentyl) 09:01 Procedures/MDM EKG, MONITORS, & DIAGNOSTIC IMAGING: CT abdomen and pelvis: IMPRESSION: 1. Streak artifact degrading optimal evaluation. 2. No evidence of calcified urinary calculi or obstructive uropathy b ilaterally. 3. Small low densities left adnexa likely ovarian cysts. Pelvic ultrasound may be helpful. 4. Moderate stool burden throughout the colon and rule out constipation. No evidence of diverticulitis or appendicitis. No bowel obstruction. 5. Hepatic fatty infiltration. LAB INTERPRETATION: I reviewed the laboratory testing and it shows no evidence of acute process MEDICAL DECISION MAKING: Patient has 5 visits to the emergency room in the span of 1 week for nonspecific and unrelated issues. There is possibly some underlying psychiatric illness here but the patient is not a danger to herself or others. She does have some paranoia and delusions but none of these meet criteria for hospitalization or hold. There may be some underlying drug-seeking behavior as well. Patient however has had laboratory testing that otherwise showed nonspecific lipase elevation of 600 not meeting the diagnostic criteria for acute pancreatitis. Given the chronicity of her abdominal pain CT imaging of the abdomen pelvis to rule out mass and obstructive process would be reasonable. Otherwise I do not believe her presentation is consistent with acute medical emergency. Patient would benefit from outpatient primary care follow-up. Possibly outpatient psychiatric evaluation as well. ER COURSE: * The patient's laboratory testing and diagnostic imaging is unrevealing. The patient was given Bentyl. * The patient continues to walk around the emergency room. She is using her cellular phone. She is in no acute distress. CT shows possible left adnexal process possibly a cyst. Patient's abdominal pain is epigastric and periumbilical and not related to ovarian process. I do not believe this is consistent with ovarian cyst versus torsion. I do not believe a pelvic ultrasound is necessary. The patient has had greater than 1 week of symptoms possibly 2 weeks of symptoms if not longer. * At this point the patient can be safely discharged home. She needs to follow with her primary care physician, outpatient follow-up with [facility] as well as GI for chronic abdominal pain would be reasonable. CONSULTATION: None DISPOSITION PLAN: The patient does not have an identifiable emergent medical condition that warrants inpatient hospitalization at this time. The patient is deemed safe for discharge with outpatient follow-up. We discussed follow up with the patient's primary care doctor within 24 to 48 hours as needed. We also discussed return to the emergency room for worsening symptoms or worsening condition. Outpatient referral: GI, [facility] Discharge Medications: Bentyl Departure Diagnosis: Primary Impression: Abdominal pain Abdominal location: generalized Qualified Codes: R10.84 - Generalized abdominal pain Additional Impression: Paranoid delusion Condition: Stable ANDRIY MOSELEY MD Nov 02, 2018 08:27
[2018-11-02] MEDS ORDERED: DICYCLOMINE 10 MG CAP PO ONE (09:00)
[2018-11-02] MEDS ORDERED: DICY10CA40 PO (09:56)
[2018-11-02 10:03] VITALS: BP 125/76; PULSE 66; RESP 18
== END 2018-11-02 10:14 | disposition home or self-care (01) ==
LOC: E/R 07:36
DX: F22 Delusional disorders (principal); R10.84 Generalized abdominal pain; R40.2142 Coma scale, eyes open, spontaneous, at arrival to emergency department; R40.2252 Coma scale, best verbal response, oriented, at arrival to emergency department; R40.2362 Coma scale, best motor response, obeys commands, at arrival to emergency department; I10 Essential (primary) hypertension
CPT/HCPCS: 74176; 80053; 81025; 83690; 85025; Z7502; Z7610

== ENCOUNTER 2018-11-04 00:30 | Emergency (ER) | payer OTHER ==
[~2018-11-04] VITALS: Ht 162.6 cm; Wt 80.1 kg
[~2018-11-04 00:30] MED LIST changes: +DICY10CA40 PO
[2018-11-04 00:45] VITALS: BP 157/96; PULSE 66; RESP 18; Ht 162.6 cm; Wt 80.1 kg
--- NOTE | 2018-11-04 02:08 | ERD ---
ER Documentation Chief Complaint Chief Complaint epigastric burning pain,nausea,diarrhea HPI This is a 37-year-old female who presented emergency department with complaints of suprapubic pain for about a day. LMP: Unknown. Denies headache, head injury, loss of consciousness, dizziness, neck pain, neck stiffness, throat pain, difficulty swallowing, difficulty breathing lying flat, shoulder pain, chest pain, back pain, abdominal pain, nausea, vomiting, constipation, diarrhea, urinary symptoms, or possibility being , loss of bowel and bladder control, trauma, injury, falls, difficulty walking due to pain, numbness or tingling sensation, calf pain, recent travel, recent major surgery in the last 3 weeks, calf pain, recent long travel, recent exposure to any illness, recent antibiotic use in the last 3 months, fever, chills, seizures. Past medical history: Hypertension. Bipolar. Surgical history: Denies. Social: Denies smoking, use of alcoholic beverages, use of illegal drugs. ROS All systems reviewed and are negative except as per history of present illness. Medications Home Meds Active Scripts Ondansetron (Ondansetron Odt) 4 Mg Tab.rapdis, 4 MG PO Q6H PRN for NAUSEA AND/OR VOMITING, #10 TAB Prov:MATHIEU ROSAS PA-C 11/09/18 Hydroxyzine Hcl* (Hydroxyzine Hcl*) 50 Mg Tablet, 50 MG PO Q6H PRN for ANXIETY, #30 TAB Prov:REGINE REYES 11/04/18 Ibuprofen* (Motrin*) 800 Mg Tab, 800 MG PO Q8 PRN for PAIN AND OR ELEVATED TEMP, #30 TAB Prov:PASILABANREGINE F 11/04/18 Phenazopyridine Hcl* (Pyridium*) 200 Mg Tab, 200 MG PO TID PRN for URINARY PAIN, #6 TAB Prov:PASILAREGINE ZAMBRANO 11/04/18 Dicyclomine HCl (Dicyclomine HCl) 10 Mg Capsule, 10 MG PO TID PRN for ABDOMINAL CRAMPING, #20 CAP Prov:ANDRIY MOSELEY MD 11/02/18 Ondansetron Hcl* (Zofran*) 4 Mg Tablet, 4 MG PO Q8H PRN for NAUSEA AND/OR VOMITING, #30 TAB Prov:PASILAREGINE ZAMBRANO 11/02/18 Acetaminophen* (Tylophen*) 500 Mg Capsule, 1 CAP PO Q6H PRN for PAIN AND OR ELEVATED TEMP, #20 CAP Prov:REGINE REYES 11/02/18 Ibuprofen* (Motrin*) 600 Mg Tab, 600 MG PO Q6H PRN for PAIN AND OR ELEVATED TEMP, #30 TAB Prov:CURRYMORRISTRINY SONAL 11/01/18 Ondansetron Hcl* (Zofran*) 4 Mg Tablet, 4 MG PO Q8H PRN for NAUSEA AND/OR VOMITING, #30 TAB Prov:REGINE REYES 10/31/18 Ibuprofen* (Motrin*) 800 Mg Tab, 800 MG PO Q6H PRN for PAIN AND OR ELEVATED TEMP, #30 TAB Prov:REGINE REYES 10/31/18 Allergies Allergies: Coded Allergies: No Known Allergy (Unverified , 10/26/18) PMhx/Soc Medical and Surgical Hx: pt denies Surgical Hx History of Surgery: No Anesthesia Reaction: No Hx Neurological Disorder: No Hx Respiratory Disorders: No Hx Cardiac Disorders: Yes (HTN) Hx Psychiatric Problems: Yes (Bipolar, Post Depression) Hx Miscellaneous Medical Probl: No Hx Alcohol Use: No Hx Substance Use: No Hx Tobacco Use: No Smoking Status: Never smoker Physical Exam Vitals Physical Exam Const: No acute distress Head: Atraumatic Eyes: Normal Conjunctiva. ENT: Normal External Ears, Nose and Mouth. Neck: Full range of motion. No meningismus. Resp: Clear to auscultation bilaterally Cardio: Regular rate and rhythm, no murmurs Abd: Soft, non tender, non distended. Normal bowel sounds. Negative [place] sign. Negative [place] sign (heel jar test). Negative psoas sign. Negative [place]ov[place] sign. Able to jump 10 times without developing lower abdominal pain. No CVA tenderness. Ambulatory with steady gait and without pain to abdomen. Skin: No petechiae or rashes. Color appears normal for ethnicity. No skin tenting. No signs of severe dehydration. Back: No midline or flank tenderness Ext: No cyanosis, or edema Neur: Awake and alert. No neurological deficits. Psych: Normal Mood and Affect. Denies auditory/visual hallucinations/delusions. Not suicidal. Not homicidal. Has the capacity to decide for herself. Has good support system at home. Results 24 hrs Laboratory Tests Test 11/04/18 01:55 11/04/18 02:00 Urine Color COLORLESS Urine Clarity CLEAR Urine pH 6.0 Urine Specific [place] 1.002 Urine Ketones NEGATIVE mg/dL Urine Nitrite NEGATIVE mg/dL Urine Bilirubin NEGATIVE mg/dL Urine Urobilinogen NEGATIVE mg/dL Urine Leukocyte Esterase NEGATIVE Mari/ul Urine Microscopic RBC 0 /HPF Urine Microscopic WBC 0 /HPF Urine Hemoglobin 1+ mg/dL Urine Glucose NEGATIVE mg/dL Urine Total Protein NEGATIVE mg/dl POC Beta HCG, Qualitative NEGATIVE Procedures/MDM Diagnostic tests: POC urine : Negative. POC urine dipstick: Reviewed. Treatment: Patient is refusing medication or treatment. Re-evaluation: Denies pain at this time. No episode of emesis here in emergency department no abdominal tenderness. Stated that she feels much better this time and that she is ready to go home. Stated that she is comfortable to go home. Denies auditory/visual hallucinations/delusions. Not suicidal. Not homicidal. Has the capacity to decide for herself. Has good support system at home. Differential diagnosis I have low suspicion for sepsis, pyelonephritis, nephrolithiasis, obstructing kidney stones, 5150. Final diagnosis: Dysuria. Anxiety. Prescription: Motrin. Pyridium. Hydroxyzine. Follow-up with PCP in the next 24-48 hours. Come back here in the emergency department for any new symptoms or any worsening symptoms. All questions and concerns were answered. Patient and family members verbalized understanding and agreed with plan of care. Hemodynamically stable on discharge. Departure Diagnosis: Primary Impression: Suprapubic pain Additional Impressions: Dysuria Anxiety Condition: Stable Additional Instructions: Follow-up with PCP in the next 24-48 hours. Come back here in the emergency department for any new symptoms or any worsening symptoms. REGINE REYES Nov 04, 2018 02:08
[2018-11-04] MEDS ORDERED: IBUP800T48 PO (03:16)
[2018-11-04] MEDS ORDERED: PHEN-538 PO (03:16)
[2018-11-04] MEDS ORDERED: HYDR50TA15 PO (03:17)
[2018-11-09] MEDS ORDERED: ONDA4TAB14 PO (12:39)
== END 2018-11-04 03:29 | disposition home or self-care (01) ==
LOC: FTE 00:30
DX: R10.30 Lower abdominal pain, unspecified (principal); R30.0 Dysuria; F41.9 Anxiety disorder, unspecified; I10 Essential (primary) hypertension; R11.0 Nausea
CPT/HCPCS: 81001; 81025; 87086; Z7502; 99283

== ENCOUNTER 2018-11-05 18:20 | Emergency (ER) | payer OTHER ==
[~2018-11-05] VITALS: Ht 165.1 cm; Wt 78.9 kg
[~2018-11-05 18:20] MED LIST changes: +HYDR50TA15 PO; +PHEN-538 PO
[2018-11-05 18:28] VITALS: Ht 165.1 cm; Wt 78.9 kg
[2018-11-05] MEDS ORDERED: LIDOCAINE/MYLANTA 40 ML BTL PO STA (19:11)
[2018-11-05] MEDS ORDERED: BELLADONNA/PHENOBARBITAL TAB PO STA (19:11)
--- NOTE | 2018-11-05 19:13 | ERD ---
ER Documentation Chief Complaint Chief Complaint DIZZINESS AND NAUSEA X TODAY HPI This is a 37-year-old woman here in the ER with her boyfriend for complaints of dizziness and nausea, this is her seventh presentation for similar symptoms in the last 10 days. She was here yesterday and evaluated and given prescriptions for her symptoms but states she did not have time to go to the pharmacy to get them filled. She does have a history of bipolar disorder and denies suicidal homicidal ideation. She states she has belching, bloating, abdominal cramping, vomiting, diarrhea. She denies dysuria, no fevers or chills, no chest pain or shortness of breath ROS All systems reviewed and are negative except as per history of present illness. Medications Home Meds Active Scripts Hydroxyzine Hcl* (Hydroxyzine Hcl*) 50 Mg Tablet, 50 MG PO Q6H PRN for ANXIETY, #30 TAB Prov:PASILAREGINE ZAMBRANO 11/04/18 Ibuprofen* (Motrin*) 800 Mg Tab, 800 MG PO Q8 PRN for PAIN AND OR ELEVATED TEMP, #30 TAB Prov:PASILAREGINE ZAMBRANO 11/04/18 Phenazopyridine Hcl* (Pyridium*) 200 Mg Tab, 200 MG PO TID PRN for URINARY PAIN, #6 TAB Prov:REGINE REYES 11/04/18 Dicyclomine HCl (Dicyclomine HCl) 10 Mg Capsule, 10 MG PO TID PRN for ABDOMINAL CRAMPING, #20 CAP Prov:ANDRIY MOSELEY MD 11/02/18 Ondansetron Hcl* (Zofran*) 4 Mg Tablet, 4 MG PO Q8H PRN for NAUSEA AND/OR VOMITING, #30 TAB Prov:PASILAREGINE ZAMBRANO F 11/02/18 Acetaminophen* (Tylophen*) 500 Mg Capsule, 1 CAP PO Q6H PRN for PAIN AND OR ELEVATED TEMP, #20 CAP Prov:PASILABANREGINE F 11/02/18 Ibuprofen* (Motrin*) 600 Mg Tab, 600 MG PO Q6H PRN for PAIN AND OR ELEVATED TEMP, #30 TAB Prov:TRINY ARZOLA PA-C 11/01/18 Ondansetron Hcl* (Zofran*) 4 Mg Tablet, 4 MG PO Q8H PRN for NAUSEA AND/OR VOMITING, #30 TAB Prov:REGINE REYES 10/31/18 Ibuprofen* (Motrin*) 800 Mg Tab, 800 MG PO Q6H PRN for PAIN AND OR ELEVATED TEMP, #30 TAB Prov:REGINE REYES 10/31/18 Allergies Allergies: Coded Allergies: No Known Allergy (Unverified , 10/26/18) PMhx/Soc Bipolar disorder History of Surgery: No Anesthesia Reaction: No Hx Neurological Disorder: No Hx Respiratory Disorders: No Hx Cardiac Disorders: Yes (HTN) Hx Psychiatric Problems: Yes (Bipolar, Post Depression) Hx Miscellaneous Medical Probl: No Hx Alcohol Use: No Hx Substance Use: No Hx Tobacco Use: No FmHx Family History: No diabetes Physical Exam Vitals Vital Signs Date Temp Pulse Resp B/P (MAP) Pulse Ox O2 O2 Flow FiO2 Time Delivery Rate 11/05/18 98.8 81 14 140/65 98 Room Air 19:37 (90) 11/05/18 76 14 147/54 98 Room Air 18:57 (85) 11/05/18 98.8 79 20 148/94 97 18:28 (112) Physical Exam GENERAL: Well-developed, well-nourished, no apparent distress ABDOMEN: Soft nontender, no guarding, no rigidity, no rebound, no psoas sign no obturator sign. SKIN: Warm and dry to touch, no abrasions, contusions, or hematomas, no lacerations, no ecchymosis, no target lesions, and without ulcers EXTREMITIES: No clubbing cyanosis or edema, calves are bilaterally symmetrical, no [place] sign, no popliteal cord sign. Distal pulses equal and bilateral PSYCH: Normal affect without agitation or irritability Results 24 hrs Current Medications Medications Dose Sig/Evette Start Time Status Last (Trade) Ordered Route PRN Stop Time Admin Dose Reason Admin 40 ml ONCE STAT 11/05/18 DC 11/05/18 Miscellaneous PO 19:11 11/05/18 19:23 Medication 19:12 (Gi Cocktail (2)) [place]/ 2 tab ONCE STAT 11/05/18 DC 11/05/18 Phenobarbital PO 19:11 11/05/18 19:23 () 19:12 Procedures/MDM I reviewed the patient's medical history and recent visits to the ED, and work- up results. I administered a GI cocktail p.o. for the patient's symptoms and provided reassurance to the patient and her boyfriend who is at the bedside. Patient feels much better at this time, and vital signs are normal, symptoms have improved. I did give strict instructions to return to the ED if symptoms continue or worsen, patient will otherwise follow-up with primary care physician. Patient understood instructions and agreed to plan. Disclaimer: Inadvertent spelling and grammatical errors are likely due to EHR/dictation software use and do not reflect on the overall quality of patient care. Also, please note that the electronic time recorded on this note does not necessarily reflect the actual time of the patient encounter. Departure Diagnosis: Primary Impression: Dizziness Additional Impressions: Bipolar disorder Active/Remission status: currently active Current bipolar episode type: manic Current episode severity: moderate Qualified Codes: F31.12 - Bipolar disorder, current episode manic without psychotic features, moderate Vomiting and diarrhea Abdominal pain Abdominal location: generalized Qualified Codes: R10.84 - Generalized abdominal pain Condition: Good Patient Instructions: Dizziness, Unk Cause, Vomiting And Diarrhea, Nonspecific (Adult) Referrals: [facility] (PCP) ROGELIO LOVE MD Nov 05, 2018 19:12
[2018-11-05 19:37] VITALS: BP 140/65; PULSE 81; RESP 14
[2018-11-09] MEDS ORDERED: ONDA4TAB14 PO (12:39)
== END 2018-11-05 19:43 | disposition home or self-care (01) ==
LOC: E/R 18:20
DX: R42 Dizziness and giddiness (principal); I10 Essential (primary) hypertension; F31.12 Bipolar disorder, current episode manic without psychotic features, moderate; R19.7 Diarrhea, unspecified; R10.84 Generalized abdominal pain; R11.2 Nausea with vomiting, unspecified
CPT/HCPCS: Z7610 ×2; 99283

== ENCOUNTER 2018-11-06 19:27 | Emergency (ER) | payer OTHER ==
[~2018-11-06] VITALS: Ht 162.6 cm; Wt 80.3 kg
[2018-11-06 19:30] VITALS: Ht 162.6 cm; Wt 80.3 kg
--- NOTE | 2018-11-06 21:30 | ERD ---
ER Documentation Chief Complaint Chief Complaint NAUSEA, CARBONE X'S 3 DAYS HPI This is a 37 yo female patient who presents to the ER with vague and changing complaints during evaluation. Complaints include headache, diarrhea, dizziness. Patient unable to give time frame or characteristics of syptoms. Patient is unable to state which medications she takes or her medical history. She is awake, alert, A/Ox4, clear speech, steady gait, NAD. BF that is with her has multiple scratches and abrasions and is elusive. Patient denies SI/HI or physical/emotional/drug abuse. ROS All systems reviewed and are negative except as per history of present illness. Medications Home Meds Active Scripts Hydroxyzine Hcl* (Hydroxyzine Hcl*) 50 Mg Tablet, 50 MG PO Q6H PRN for ANXIETY, #30 TAB Prov:REGINE REYES 11/04/18 Ibuprofen* (Motrin*) 800 Mg Tab, 800 MG PO Q8 PRN for PAIN AND OR ELEVATED TEMP, #30 TAB Prov:REGINE REYES 11/04/18 Phenazopyridine Hcl* (Pyridium*) 200 Mg Tab, 200 MG PO TID PRN for URINARY PAIN, #6 TAB Prov:REGINE REYES 11/04/18 Dicyclomine HCl (Dicyclomine HCl) 10 Mg Capsule, 10 MG PO TID PRN for ABDOMINAL CRAMPING, #20 CAP Prov:ANDRIY MOSELEY MD 11/02/18 Ondansetron Hcl* (Zofran*) 4 Mg Tablet, 4 MG PO Q8H PRN for NAUSEA AND/OR VOMITING, #30 TAB Prov:REGINE REYES 11/02/18 Acetaminophen* (Tylophen*) 500 Mg Capsule, 1 CAP PO Q6H PRN for PAIN AND OR ELEVATED TEMP, #20 CAP Prov:PASILAREGINE ZAMBRANO 11/02/18 Ibuprofen* (Motrin*) 600 Mg Tab, 600 MG PO Q6H PRN for PAIN AND OR ELEVATED TEMP, #30 TAB Prov:TRINY ARZOLA PA-C 11/01/18 Ondansetron Hcl* (Zofran*) 4 Mg Tablet, 4 MG PO Q8H PRN for NAUSEA AND/OR VOMITING, #30 TAB Prov:REGINE REYES 10/31/18 Ibuprofen* (Motrin*) 800 Mg Tab, 800 MG PO Q6H PRN for PAIN AND OR ELEVATED TEMP, #30 TAB Prov:REGINE REYES 10/31/18 Allergies Allergies: Coded Allergies: No Known Allergy (Unverified , 10/26/18) PMhx/Soc Medical and Surgical Hx: pt denies Surgical Hx History of Surgery: No Anesthesia Reaction: No Hx Neurological Disorder: No Hx Respiratory Disorders: No Hx Cardiac Disorders: Yes (HTN) Hx Psychiatric Problems: Yes (Bipolar, Post Depression) Hx Miscellaneous Medical Probl: No Hx Alcohol Use: No Hx Substance Use: No Hx Tobacco Use: No Smoking Status: Never smoker FmHx Family History: No diabetes, No coronary disease, No other Physical Exam Vitals Vital Signs Date Temp Pulse Resp B/P (MAP) Pulse Ox O2 O2 Flow FiO2 Time Delivery Rate 11/06/18 98.2 70 18 174/87 100 Room Air 22:36 (116) 11/06/18 97.5 83 18 160/106 98 19:30 (124) Physical Exam Const: No acute distress Head: Atraumatic Eyes: Normal Conjunctiva, PERRL, EOMI, no nystagmus ENT: Normal External Ears, TM clear BL, Nose without drainage, pharynx pink, moist, no lesions, no exudate Neck: Full range of motion. No meningismus.No lymphadenopathy Resp: Clear to auscultation bilaterally, equal chest rise Cardio: Regular rate and rhythm, no murmurs Abd: Soft, non tender, non distended. Normal bowel sounds, no bruising Skin: BL arms with multiple hematomas in AC and hands due to multiple IV starts Back: No midline or flank tenderness, no CVT Ext: No cyanosis, or edema Neur: Awake and alert, CNII-XII intact, clear speech, stead gait, neg romberg Psych: Anxious Mood and Affect, +intellectual impairement, flight of ideas, +rumination Results 24 hrs Laboratory Tests Test 11/06/18 21:51 11/06/18 21:52 POC Beta HCG, Qualitative NEGATIVE Bedside Urine pH (LAB) 7.0 Bedside Urine Protein (LAB) Negative Bedside Urine Glucose (UA) Negative Bedside Urine Ketones (LAB) Negative Bedside Urine Blood Trace-lysed Bedside Urine Nitrite (LAB) Negative Bedside Urine Leukocyte Esterase (L Negative Procedures/MDM PROCEDURES/MDM MDM: This 37 yo female presents to the ER with multiple complaints. Upon physical exam, multiple bruises noted to BL arms that are obvious sites of IV starts. Upon asking patient about the bruises, she states she just left [place] where she was worked up for the same complaints and was told she was "normal." She states she came to [facility] because they told her "not to come back here" and she doesn't feel different than before she went to [place]. Patient's record reveals 8 visits to this hospital in the last 2 weeks for the same complaint as today. She has had multiple negative workups and has been prescribed several medications for her complaints including medications for diarrhea, nausea, pain, and anxiety. Upon asking about this, she states she is not taking any of these medications to treat her symptoms "because I feel bad." She state she is on se veral psychiatric medications and is seen by psychiatrist. She is unable to name the medications that she takes. Her BF does not know the names of her medications. She states she last saw her psychiatrist 2 weeks ago and she has never talked to her psychiatrist about her physical discomfort. As psychiatric medications can have physical and emotional side effects, it is possible she is experiencing the side effects of her psych meds. This was discussed with patient, she was instructed to see her psychiatrist on Thursday for this reason and to discuss her symptoms as possible side effects. Urinalysis was performed to r/o UTI or , both negative. Blood work or radiological diagnostics not indicated today. Patient is well-appearing, no weakness, no active nausea or vomiting, no pain, steady gait, clear speech. Long discussion had with patient and her BF regarding her symptoms, medications, hydration, nutrition, sleep, exercise, and need to follow-up with her PMD and psychiatrist. Patient educated to appropriate s/sx of worsening of condition and when to seek emergent medical care. Patient and BF agreeable to increasing improved self-care activities and compliance with prescribed medications including the vistaril for her anxiety. Pt alert, appropriate, positive mood upon discharge. DISPOSITION and PLAN: RX:Patient instructed to take her medications as prescribed The patient has been discharge home to follow-up with community physician. Departure Diagnosis: Primary Impression: Multiple complaints Condition: Stable TOBY FLORES NP Nov 06, 2018 21:30
[2018-11-06 22:36] VITALS: BP 174/87; PULSE 70; RESP 18
[2018-11-09] MEDS ORDERED: ONDA4TAB14 PO (12:39)
== END 2018-11-06 22:41 | disposition home or self-care (01) ==
LOC: FTE 19:27
DX: F41.9 Anxiety disorder, unspecified (principal); I10 Essential (primary) hypertension; R19.7 Diarrhea, unspecified; R42 Dizziness and giddiness; R11.0 Nausea
CPT/HCPCS: 81003; 81025; Z7502; 99282

== ENCOUNTER 2018-11-09 11:30 | Emergency (ER) | payer OTHER ==
[~2018-11-09] VITALS: Ht 157.5 cm; Wt 77.2 kg
[~2018-11-09 11:30] MED LIST changes: +CEPH-443 PO; +CIPR500T4 PO; +DIPH1TAB PO; +ONDA4TAB14 PO; +SULF1TAB31 PO
[2018-11-09 11:38] VITALS: BP 138/90; PULSE 89; RESP 18; Ht 157.5 cm; Wt 77.2 kg
[2018-11-09] MEDS ORDERED: ONDANSETRON (ODT) 4 MG TAB ODT STA (11:58)
--- NOTE | 2018-11-09 12:49 | ERD ---
ER Documentation Chief Complaint Chief Complaint NAUSEA AND DIARRHEA HPI 37-year-old female presents with nausea and diarrhea. Patient states this is been intermittent over the last couple weeks and she is been seen at multiple hospitals. She denies any chest pain or shortness of breath. Denies any changes in urination. No fevers. Patient has not taken medications for symptoms. Denies medical problems. NKDA. Surgical history denies. Social history denies ROS All systems reviewed and are negative except as per history of present illness. Medications Home Meds Active Scripts Ondansetron (Ondansetron Odt) 4 Mg Tab.rapdis, 4 MG PO Q6H PRN for NAUSEA AND/OR VOMITING, #10 TAB Prov:MATHIEU ROSAS PA-C 11/09/18 Hydroxyzine Hcl* (Hydroxyzine Hcl*) 50 Mg Tablet, 50 MG PO Q6H PRN for ANXIETY, #30 TAB Prov:REGINE REYES 11/04/18 Ibuprofen* (Motrin*) 800 Mg Tab, 800 MG PO Q8 PRN for PAIN AND OR ELEVATED TEMP, #30 TAB Prov:REGINE REYES 11/04/18 Phenazopyridine Hcl* (Pyridium*) 200 Mg Tab, 200 MG PO TID PRN for URINARY PAIN, #6 TAB Prov:REGINE REYES 11/04/18 Dicyclomine HCl (Dicyclomine HCl) 10 Mg Capsule, 10 MG PO TID PRN for ABDOMINAL CRAMPING, #20 CAP Prov:ANDRIY MOSELEY MD 11/02/18 Ondansetron Hcl* (Zofran*) 4 Mg Tablet, 4 MG PO Q8H PRN for NAUSEA AND/OR VOMITING, #30 TAB Prov:REGINE REYES 11/02/18 Acetaminophen* (Tylophen*) 500 Mg Capsule, 1 CAP PO Q6H PRN for PAIN AND OR ELEVATED TEMP, #20 CAP Prov:PASILAREGINE ZAMBRANO 11/02/18 Ibuprofen* (Motrin*) 600 Mg Tab, 600 MG PO Q6H PRN for PAIN AND OR ELEVATED TEMP, #30 TAB Prov:TRINY ARZOLA PA-C 11/01/18 Ondansetron Hcl* (Zofran*) 4 Mg Tablet, 4 MG PO Q8H PRN for NAUSEA AND/OR VOMITING, #30 TAB Prov:REGINE REYES 10/31/18 Ibuprofen* (Motrin*) 800 Mg Tab, 800 MG PO Q6H PRN for PAIN AND OR ELEVATED TEMP, #30 TAB Prov:REGINE REYES 10/31/18 Allergies Allergies: Coded Allergies: No Known Allergy (Unverified , 10/26/18) PMhx/Soc History of Surgery: No Anesthesia Reaction: No Hx Neurological Disorder: No Hx Respiratory Disorders: No Hx Cardiac Disorders: Yes (HTN) Hx Psychiatric Problems: Yes (Bipolar, Post Depression) Hx Miscellaneous Medical Probl: No Hx Alcohol Use: No Hx Substance Use: No Hx Tobacco Use: No Smoking Status: Never smoker FmHx Family History: No diabetes, No coronary disease, No other Physical Exam Vitals Vital Signs Date Temp Pulse Resp B/P (MAP) Pulse Ox O2 O2 Flow FiO2 Time Delivery Rate 11/09/18 98.1 89 18 138/90 99 11:38 (106) Physical Exam GENERAL: The patient is well-appearing, well-nourished, in no acute distress HEENT: Atraumatic. Conjunctivae are pink. Pupils equal, round, and reactive to light. There is no scleral icterus. Tympanic membranes clear bilaterally. Oropharynx clear. NECK: C-spine is soft and supple. There is no meningismus. There is no cervical lymphadenopathy. CHEST: Clear to auscultation bilaterally. There are no rales, wheezes or rhonchi. HEART: Regular rate and rhythm. No murmurs, clicks, rubs or gallops. ABDOMEN:Soft, nontender and nondistended. Good bowel sounds. No rebound or guarding. No gross peritonitis. No gross organomegaly or masses. Results 24 hrs Laboratory Tests Test 11/09/18 12:11 11/09/18 12:34 11/09/18 12:36 POC Beta HCG, Qualitative NEGATIVE Bedside Urine pH (LAB) 6.0 6.0 Bedside Urine Protein (LAB) 1+ 1+ Bedside Urine Glucose (UA) Negative Negative Bedside Urine Ketones (LAB) Negative Negative Bedside Urine Blood 2+ 2+ Bedside Urine Nitrite (LAB) Negative Negative Bedside Urine Leukocyte Esterase (L Negative Negative Current Medications Medications Dose Sig/Evette Start Time Status Last (Trade) Ordered Route PRN Stop Time Admin Dose Reason Admin Ondansetron 4 mg ONCE STAT 11/09/18 DC HCl (Zofran ODT 11:58 11/09/18 Odt) 11:59 Procedures/MDM ER course: Zofran and p.o. challenge given ED. MDM: 37-year-old female presenting with nausea. Patient was given Zofran in the ER with resolution of nausea. Patient is discharged with supportive medications. I do not feel blood work or imaging is indicated. Patient is discharged with supportive medications and told to follow-up with primary care within 1 to 2 days for close evaluation. Patient is told if symptoms change or worsen to return immediately to the ER. All questions answered at discharge Departure Diagnosis: Primary Impression: Mild nausea Condition: Stable Patient Instructions: Nausea Referrals: [facility] (PCP) Additional Instructions: FOLLOW UP WITH YOUR PRIMARY CARE PHYSICIAN TOMORROW.Return to this facility if you are not improving as expected. MATHIEU ROSAS PA-C Nov 09, 2018 12:49
== END 2018-11-09 12:45 | disposition home or self-care (01) ==
LOC: FTE 11:30
DX: R11.0 Nausea (principal)
CPT/HCPCS: 81003; 81025; 96374; 96375; 96376; Z7502

== ENCOUNTER 2018-11-10 07:43 | Emergency (ER) | payer OTHER ==
[~2018-11-10] VITALS: Ht 154.9 cm; Wt 80.0 kg
[~2018-11-10 07:43] MED LIST changes: -CEPH-443 PO; -CIPR500T4 PO; -DIPH1TAB PO; -SULF1TAB31 PO
[2018-11-10 07:48] VITALS: BP 131/81; PULSE 81; RESP 18; Ht 154.9 cm; Wt 80.0 kg
--- NOTE | 2018-11-10 08:16 | ERD ---
ER Documentation Chief Complaint Chief Complaint HERE YESTERDAY W/ SAME WANTS TO KNOW IF HAS INFECTION HPI 37-year-old female who now has approximately 7-8 visits to this emergency department this month alone for similar nonspecific related symptoms that include mild headache, generalized abdominal pain. Patient has had thorough work-up including with myself on the second of this month including labs and CT imaging that was unremarkable. The patient is additionally been to 2 other emergency departments for similar things in this timeframe. Patient presents again today because she states that she wants to know if she has an infection based on her blood work. She describes persistent mild cramping abdominal discomfort that is worse in the morning when she wakes up and alleviated throughout the day. No other complaints currently. ROS All systems reviewed and are negative except as per history of present illness. Medications Home Meds Active Scripts Ondansetron (Ondansetron Odt) 4 Mg Tab.rapdis, 4 MG PO Q6H PRN for NAUSEA AND/OR VOMITING, #10 TAB Prov:MATHIEU ROSAS PA-C 11/09/18 Hydroxyzine Hcl* (Hydroxyzine Hcl*) 50 Mg Tablet, 50 MG PO Q6H PRN for ANXIETY, #30 TAB Prov:PASREGINE RUBIO 11/04/18 Ibuprofen* (Motrin*) 800 Mg Tab, 800 MG PO Q8 PRN for PAIN AND OR ELEVATED TEMP, #30 TAB Prov:PASILAREGINE ZAMBRANO F 11/04/18 Phenazopyridine Hcl* (Pyridium*) 200 Mg Tab, 200 MG PO TID PRN for URINARY PAIN, #6 TAB Prov:PASILAREGINE ZAMBRANO 11/04/18 Dicyclomine HCl (Dicyclomine HCl) 10 Mg Capsule, 10 MG PO TID PRN for ABDOMINAL CRAMPING, #20 CAP Prov:ANDRIY MOSELEY MD 11/02/18 Ondansetron Hcl* (Zofran*) 4 Mg Tablet, 4 MG PO Q8H PRN for NAUSEA AND/OR VOMITING, #30 TAB Prov:PASILAREGINE ZAMBRANO F 11/02/18 Acetaminophen* (Tylophen*) 500 Mg Capsule, 1 CAP PO Q6H PRN for PAIN AND OR ELEVATED TEMP, #20 CAP Prov:PASILABANREGINE 11/02/18 Ibuprofen* (Motrin*) 600 Mg Tab, 600 MG PO Q6H PRN for PAIN AND OR ELEVATED TEMP, #30 TAB Prov:TRINY ARZOLA PA-C 11/01/18 Ondansetron Hcl* (Zofran*) 4 Mg Tablet, 4 MG PO Q8H PRN for NAUSEA AND/OR VOMITING, #30 TAB Prov:REGINE REYES 10/31/18 Ibuprofen* (Motrin*) 800 Mg Tab, 800 MG PO Q6H PRN for PAIN AND OR ELEVATED TEMP, #30 TAB Prov:REGINE REYES F 10/31/18 Allergies Allergies: Coded Allergies: No Known Allergy (Unverified , 10/26/18) PMhx/Soc History of Surgery: No Anesthesia Reaction: No Hx Neurological Disorder: No Hx Respiratory Disorders: No Hx Cardiac Disorders: Yes (HTN) Hx Psychiatric Problems: Yes (Bipolar, Post Depression) Hx Miscellaneous Medical Probl: No Hx Alcohol Use: No Hx Substance Use: No Hx Tobacco Use: No FmHx Family History: No diabetes Physical Exam Vitals Vital Signs Date Temp Pulse Resp B/P (MAP) Pulse Ox O2 O2 Flow FiO2 Time Delivery Rate 11/10/18 98.2 81 18 131/81 99 07:48 (98) Physical Exam General: Well developed, well nourished, no acute distress Head: Normocephalic, atraumatic. Eyes: Pupils equally reactive, EOM intact ENT: Moist mucous membranes Neck: Supple, no lymphadenopathy Respiratory: Lungs clear bilaterally, no distress Cardiovascular: RRR, no murmurs, rubs, or gallops Abdominal: Soft, non-tender, non-distended, no peritoneal signs : Deferred MSK: No edema, no unilateral swelling, 5/5 strength Neurologic: Alert and oriented, moving all extremities, normal speech, no focal weakness, no cerebellar signs Skin: No rash Psych: Normal mood Procedures/MDM The patient has had a thorough examination and work-up in the past at this hospital and what appears to be a 2 other hospitals within the last week. It is unclear what the patient keeps returning to the emergency room. This does not appear to be a drug-seeking process. The patient seems to have poor insight into her medical condition and continues to return to the emergency room. The patient may have underlying psychiatric illness but appears to be caring for herself and able to get her primary care physician. She was at her primary care physician office on Thursday. At this time the patient exhibits no signs or symptoms concerning for emergent medical condition. In the last week the patient had laboratory testing and CT imaging of the abdomen and pelvis. Repeat testing is unnecessary and will not reveal acute process at this time. The patient was strongly advised to follow-up with her primary care physician and see a hand nailer for her chronic and subacute process. Patient is not a danger to herself or others, she is caring for herself and well-groomed. The patient can be safely discharged. The patient does not have an identifiable emergent medical condition that warrants inpatient hospitalization at this time. The patient is deemed safe for discharge with outpatient follow-up. We discussed follow up with the patient's primary care doctor within 24 to 48 hours as needed. We also discussed return to the emergency room for worsening symptoms or worsening condition. Outpatient referral: Gastroenterology Discharge Medications: None required Departure Diagnosis: Primary Impression: Encounter for medical screening examination Condition: Stable Patient Instructions: Abdominal Pain, Unknown Cause, (Female) Referrals: JENNY GRAY MD, PIYUSH K MD Additional Instructions: It is very important to follow-up with the primary care physician. You may need specialty care including gastroenterology for your chronic abdominal pain. ANDRIY MOSELEY MD Nov 10, 2018 08:16
[2018-11-11] MEDS ORDERED: IBUP800T48 PO (13:31)
[2018-11-11] MEDS ORDERED: DIPH1TAB PO (13:31)
== END 2018-11-10 08:39 | disposition home or self-care (01) ==
LOC: FTE 07:43 → E/R 08:39
DX: Z00.00 Encounter for general adult medical examination without abnormal findings (principal); I10 Essential (primary) hypertension
CPT/HCPCS: 99282

== ENCOUNTER 2018-11-11 11:37 | Emergency (ER) | payer OTHER ==
[~2018-11-11] VITALS: Ht 160 cm; Wt 77.1 kg
[2018-11-11 11:53] VITALS: BP 138/90; PULSE 76; RESP 18; Ht 160 cm; Wt 77.1 kg
[2018-11-11] MEDS ORDERED: IBUP800T48 PO (13:31)
[2018-11-11] MEDS ORDERED: DIPH1TAB PO (13:31)
--- NOTE | 2018-11-11 13:42 | ERD ---
ER Documentation Chief Complaint Chief Complaint ABD. PAIN WITH DIARRHEA FOR 3 DAYS. SEEN HERE FOR SAME YEST. HPI This is a 37-year-old female with a past medical history of high cholesterol and bipolar disorder. The patient indicates that for the past 17 days she has been having a bandlike headache. She states she takes Motrin and her headache improves. She states this is not the worst headache of her life. She said no fevers or shaking no chills and denies any neck pain. She is had no recent travel. She has no changes in vision. She also indicates that she has been having diarrhea for the past 3 days. She indicates that the diarrhea is loose watery stools and she is been having roughly 2 episodes a day for the past 3 days. She denies any recent antibiotics. She contrary to the triage note denies any abdominal pain. The patient has been seen multiple times in the emergency department with significant work-up including CT scan ancillary laboratory work over the past month. When asked why she came to the emergency department today she stated she wanted to be reevaluated "to make sure I do not have an infection." She denies any suicidal homicidal thoughts or ideations. ROS All systems reviewed and are negative except as per history of present illness. Medications Home Meds Active Scripts Ibuprofen* (Motrin*) 800 Mg Tab, 800 MG PO Q6H PRN for PAIN AND OR ELEVATED TEMP, #30 TAB Prov:KWABENA FISHER MD 11/11/18 Diphenoxylate HCl/Atropine (Lomotil 2.5-0.025 mg Tablet) 1 Each Tablet, 1 TAB PO QID PRN for DIARRHEA, #10 TAB Prov:KWABENA FISHER MD 11/11/18 Ondansetron (Ondansetron Odt) 4 Mg Tab.rapdis, 4 MG PO Q6H PRN for NAUSEA AND/OR VOMITING, #10 TAB Prov:MATHIEU ROSAS PA-C 11/09/18 Hydroxyzine Hcl* (Hydroxyzine Hcl*) 50 Mg Tablet, 50 MG PO Q6H PRN for ANXIETY, #30 TAB Prov:REGINE REYES F 11/04/18 Ibuprofen* (Motrin*) 800 Mg Tab, 800 MG PO Q8 PRN for PAIN AND OR ELEVATED TEMP, #30 TAB Prov:PASREGINE RUBIO F 11/04/18 Dicyclomine HCl (Dicyclomine HCl) 10 Mg Capsule, 10 MG PO TID PRN for ABDOMINAL CRAMPING, #20 CAP Prov:ANDRIY MOSELEY MD 11/02/18 Acetaminophen* (Tylophen*) 500 Mg Capsule, 1 CAP PO Q6H PRN for PAIN AND OR ELEVATED TEMP, #20 CAP Prov:REGINE REYES 11/02/18 Discontinued Scripts Phenazopyridine Hcl* (Pyridium*) 200 Mg Tab, 200 MG PO TID PRN for URINARY PAIN, #6 TAB Prov:REGINE REYES 11/04/18 Ondansetron Hcl* (Zofran*) 4 Mg Tablet, 4 MG PO Q8H PRN for NAUSEA AND/OR VOMITING, #30 TAB Prov:REGINE REYES 11/02/18 Ibuprofen* (Motrin*) 600 Mg Tab, 600 MG PO Q6H PRN for PAIN AND OR ELEVATED TEMP, #30 TAB Prov:TRINY ARZOAL PA-C 11/01/18 Ondansetron Hcl* (Zofran*) 4 Mg Tablet, 4 MG PO Q8H PRN for NAUSEA AND/OR VOMITING, #30 TAB Prov:REGINE REYES 10/31/18 Ibuprofen* (Motrin*) 800 Mg Tab, 800 MG PO Q6H PRN for PAIN AND OR ELEVATED TEMP, #30 TAB Prov:REGINE REYES 10/31/18 Allergies Allergies: Coded Allergies: No Known Allergy (Unverified , 11/11/18) PMhx/Soc History of Surgery: No Anesthesia Reaction: No Hx Neurological Disorder: No Hx Respiratory Disorders: No Hx Cardiac Disorders: Yes (HTN) Hx Psychiatric Problems: Yes (Bipolar, Post Depression) Hx Miscellaneous Medical Probl: No Hx Alcohol Use: No Hx Substance Use: No Hx Tobacco Use: No Physical Exam Vitals Vital Signs Date Temp Pulse Resp B/P (MAP) Pulse Ox O2 O2 Flow FiO2 Time Delivery Rate 11/11/18 97.6 76 18 138/90 99 11:53 (106) Physical Exam Constitutional:Well-developed. Well-nourished. HEENT:Normocephalic. Atraumatic.Pupils were equal round reactive to light. Moist mucous membranes.No tonsillar exudates. Neck: No nuchal rigidity. No lymphadenopathy. No posterior cervical spine tenderness or step-offs. Respiratory: Not using accessory muscles of respiration.Lungs were clear to auscultation bilaterally. No rhonchi. No rales. No wheezing. Cardiovascular: Regular rate regular rhythm.No murmurs. No rubs were appreciate d.S1, S2 normal. Distal pulses are palpable 2+ bilaterally. GI: Abdomen was soft. Nontender. Non Distended. No pulsatile abdominal masses or bruits. No rebound. No guarding. Bowel sounds were present and normal. Muscle skeletal: Full range of motion of both the upper and lower extremities bilaterally.Normal muscle tone.No assymetrical calf tenderness or swelling. Skin: No petechia, no purpura. No lesions on the palms or the soles of the feet. No maculopapular rash. NEURO: Patient was alert, awake, orientated x3.No facial droop. Gait observed and normal with no ataxia.Speech had regular rate and rhythm. No focal neurological deficits. PSYCH: Patient is not disheveled. She answers all questions properly. She was face timing on her phone throughout most of her emergency room visit. She d enied any auditory tactile visual hallucinations. No suicidal homicidal thoughts or ideations. Result Diagram: 11/11/18 1239 11/11/18 1239 Results 24 hrs Laboratory Tests Test 11/11/18 12:39 White Blood Count 7.2 10^3/ul Red Blood Count 5.00 10^6/ul Hemoglobin 13.8 g/dl Hematocrit 40.7 % Mean Corpuscular Volume 81.4 fl Mean Corpuscular Hemoglobin 27.6 pg Mean Corpuscular Hemoglobin Concent 33.9 g/dl Red Cell Distribution Width 13.5 % Platelet Count 313 10^3/UL Mean Platelet Volume 9.6 fl Immature Granulocytes % 0.300 % Neutrophils % 58.6 % Lymphocytes % 33.0 % Monocytes % 6.0 % Eosinophils % 1.4 % Basophils % 0.7 % Nucleated Red Blood Cells % 0.0 /100WBC Immature Granulocytes # 0.020 10^3/ul Neutrophils # 4.2 10^3/ul Lymphocytes # 2.4 10^3/ul Monocytes # 0.4 10^3/ul Eosinophils # 0.1 10^3/ul Basophils # 0.1 10^3/ul Nucleated Red Blood Cells # 0.0 10^3/ul Prothrombin Time 12.2 Sec Prothrombin Time Ratio 1.0 INR International Normalized Ratio 0.89 Activated Partial Thromboplast Time 27.7 Sec Sodium Level 143 mmol/L Potassium Level 3.6 mmol/L Chloride Level 107 mmol/L Carbon Dioxide Level 25 mmol/L Anion Gap 11 Blood Urea Nitrogen 7 mg/dl Creatinine 0.55 mg/dl Est Glomerular Filtrat Rate mL/min > 60 mL/min Glucose Level 99 mg/dl Calcium Level 9.7 mg/dl Total Bilirubin 2.1 mg/dl Direct Bilirubin 0.00 mg/dl Indirect Bilirubin 2.1 mg/dl Aspartate Amino Transf (AST/SGOT) 26 IU/L Alanine Aminotransferase (ALT/SGPT) 28 IU/L Alkaline Phosphatase 80 IU/L Creatine Kinase 79 IU/L Creatine Kinase Index 0.6 Creatinine Kinase MB (Mass) 0.47 ng/ml Troponin I < 0.012 ng/ml Total Protein 7.8 g/dl Albumin 4.5 g/dl Globulin 3.30 g/dl Albumin/Globulin Ratio 1.36 Amylase Level 71 U/L Lipase 64 U/L Serum HCG, Qualitative NEGATIVE Salicylates Level < 1.0 mg/dl Acetaminophen Level < 10.0 ug/ml Ethyl Alcohol Level < 10.0 mg/dl Procedures/MDM This is a 37-year-old female that has returned to the emergency department today for reevaluation. I reviewed the patient's ancillary laboratory work from yesterday as well as for the past several visits during this month. The patient had no abnormal findings on diagnostic imaging. On today's physical examination her abdomen was benign. She had no risk factors or physical exam findings to suggest meningitis or subarachnoid hemorrhage. I felt her headache was likely result of a tension headache. She stated that she would like a prescription for Motrin which was provided to the patient. Regarding the patient's diarrhea she had no risk factors for C. difficile. I repeated the ancillary laboratory work today with no leukocytosis or severe electrolyte abnormalities to suggest dehydration. I indicated to the patient this was likely a viral etiology and that she could be safely discharged home with antidiarrheal medication. The patient was discharged home in fair condition. They were instructed to return to the emergency department at any time if there was any worsening of their condition. The patient stated they would follow up with their PCP in the next 24-48 hours to initiate a suitable medication regimen under the care of their PCP as well as to allow their PCP to monitor any drug reactions. The patient was discharged home with prescriptions after they gave informed consent to the new medication. They were also fully informed by myself on the adverse effects and adverse drug interactions in order to provide adequate safeguards to prevent possible adverse reactions to medications. Departure Diagnosis: Primary Impression: Tension headache Additional Impression: Diarrhea Diarrhea type: unspecified type Qualified Codes: R19.7 - Diarrhea, unspecified Condition: Fair Patient Instructions: Tension Headaches, Diarrhea, Viral (Child) (Adult) Referrals: [facility] (PCP) KWABENA FISHER MD Nov 11, 2018 13:41
== END 2018-11-11 13:58 | disposition home or self-care (01) ==
LOC: E/R 11:37
DX: G44.209 Tension-type headache, unspecified, not intractable (principal); I10 Essential (primary) hypertension; R19.7 Diarrhea, unspecified
CPT/HCPCS: 80053; 80307; 82150; 82550; 82553; 83690; 84484; 84703; 85025; 85610; 85730; Z7502

== ENCOUNTER → 2018-11-13 | Emergency (ER) | payer SELFPAY ==
[~2018-11-13] VITALS: Wt 78.0 kg
[~2018-11-13] MED LIST changes: +DIPH1TAB PO; -IBUP-1542 PO; -ONDA4TAB8 PO; -PHEN-538 PO
[2018-11-13 09:21] VITALS: BP 160/85; PULSE 68; RESP 18
== END | disposition left against medical advice (07) ==
LOC: E/R 09:18
DX: Z53.21 Procedure and treatment not carried out due to patient leaving prior to being seen by health care provider (principal)

== ENCOUNTER 2018-11-14 01:27 | Emergency (ER) | payer OTHER ==
[~2018-11-14] VITALS: Ht 162.6 cm; Wt 79.8 kg
[2018-11-14 01:30] VITALS: BP 176/95; PULSE 65; RESP 16; Ht 162.6 cm; Wt 79.8 kg
[2018-11-14] MEDS ORDERED: HYDROmorphONE 1 MG/ML SYG IV STA (01:54)
[2018-11-14] MEDS ORDERED: ONDANSETRON 4 MG INJ IV STA (01:54)
--- NOTE | 2018-11-14 02:14 | ERD ---
ER Documentation Chief Complaint Chief Complaint c/o n/v/d x 2 days with AP HPI This is a 37-year-old female complains of pain in the right lower quadrant with nausea and vomiting. She said the symptoms for 2-1/2 weeks. She said that she has Zachary had 2 CAT scans that were negative. She says that the pain is a cr ampy sharp pain at times. No back pain no hematuria no fever no decrease in appetite. No vaginal discharge or bleeding. ROS All systems reviewed and are negative except as per history of present illness. Medications Home Meds Active Scripts Ibuprofen* (Motrin*) 800 Mg Tab, 800 MG PO Q6H PRN for PAIN AND OR ELEVATED TEMP, #30 TAB Prov:KWABENA FISHER MD 11/11/18 Diphenoxylate HCl/Atropine (Lomotil 2.5-0.025 mg Tablet) 1 Each Tablet, 1 TAB PO QID PRN for DIARRHEA, #10 TAB Prov:KWABENA FISHER MD 11/11/18 Ondansetron (Ondansetron Odt) 4 Mg Tab.rapdis, 4 MG PO Q6H PRN for NAUSEA AND/OR VOMITING, #10 TAB Prov:MATHIEU ROSAS PA-C 11/09/18 Hydroxyzine Hcl* (Hydroxyzine Hcl*) 50 Mg Tablet, 50 MG PO Q6H PRN for ANXIETY, #30 TAB Prov:REGINE REYES 11/04/18 Ibuprofen* (Motrin*) 800 Mg Tab, 800 MG PO Q8 PRN for PAIN AND OR ELEVATED TEMP, #30 TAB Prov:REGINE REYES 11/04/18 Dicyclomine HCl (Dicyclomine HCl) 10 Mg Capsule, 10 MG PO TID PRN for ABDOMINAL CRAMPING, #20 CAP Prov:ANDRIY MOSELEY MD 11/02/18 Acetaminophen* (Tylophen*) 500 Mg Capsule, 1 CAP PO Q6H PRN for PAIN AND OR ELEVATED TEMP, #20 CAP Prov:REGINE REYES 11/02/18 Discontinued Scripts Phenazopyridine Hcl* (Pyridium*) 200 Mg Tab, 200 MG PO TID PRN for URINARY PAIN, #6 TAB Prov:REGINE REYES 11/04/18 Ondansetron Hcl* (Zofran*) 4 Mg Tablet, 4 MG PO Q8H PRN for NAUSEA AND/OR VOMITING, #30 TAB Prov:REGINE REYES 11/02/18 Ibuprofen* (Motrin*) 600 Mg Tab, 600 MG PO Q6H PRN for PAIN AND OR ELEVATED TEMP, #30 TAB Prov:TRINY ARZOLA PA-C 11/01/18 Ondansetron Hcl* (Zofran*) 4 Mg Tablet, 4 MG PO Q8H PRN for NAUSEA AND/OR VOMITING, #30 TAB Prov:DARCIILAREGINE ZAMBRANO F 10/31/18 Ibuprofen* (Motrin*) 800 Mg Tab, 800 MG PO Q6H PRN for PAIN AND OR ELEVATED TEMP, #30 TAB Prov:SERGIOBANREGINE F 10/31/18 Allergies Allergies: Coded Allergies: No Known Allergy (Unverified , 11/11/18) PMhx/Soc History of Surgery: No Anesthesia Reaction: No Hx Neurological Disorder: No Hx Respiratory Disorders: No Hx Cardiac Disorders: Yes (htn) Hx Psychiatric Problems: Yes (bipolar) Hx Miscellaneous Medical Probl: No Hx Alcohol Use: No Hx Substance Use: No Hx Tobacco Use: No Smoking Status: Never smoker FmHx Family History: No coronary disease Physical Exam Vitals Vital Signs Date Temp Pulse Resp B/P (MAP) Pulse Ox O2 O2 Flow FiO2 Time Delivery Rate 11/14/18 98.1 65 16 176/95 100 01:30 (122) Physical Exam Const: Well-developed, well-nourished Head: Atraumatic, normocephalic Eyes: Normal Conjunctiva, PERRLA, EOMI, normal sclera, no nystagmus ENT: Normal External Ears, Nose and Mouth, moist mucus membranes. Neck: Full range of motion. No meningismus, no lymphadenopathy. Resp: Clear to auscultation bilaterally, no wheezing, rhonchi, rales Cardio: Regular rate and rhythm, no murmurs, S1 S2 present Abd: Soft, mild right lower quadrant tenderness non distended. Normal bowel sounds, no guarding or rebound, no pulsitile abdominal masses or bruits Skin: No petechiae or rashes, no ecchymosis , no maculopapular rash Back: No midline or flank tenderness Ext: No cyanosis, or edema, FROM x 4, normal inspection, neurovascularly intact x 4 Neur: Awake and alert, STR 5/5 x 4, sensation intact x 4, no focal findings, cerebellum intact Psych: Normal Mood and Affect Results 24 hrs Laboratory Tests Test 11/14/18 01:59 POC Beta HCG, Qualitative NEGATIVE Current Medications Medications Dose Sig/Evette Start Time Status Last (Trade) Ordered Route PRN Stop Time Admin Dose Reason Admin 1 mg ONCE STAT 11/14/18 DC Hydromorphone IV 01:54 HCl 11/14/18 01:55 (Dilaudid) Ondansetron 4 mg ONCE STAT 11/14/18 DC HCl (Zofran IV 01:54 Inj) 11/14/18 01:55 Procedures/MDM Patient is refusing blood work and CAT scan at this time. She says that she feels better and does not want to have any work-up done. I discussed with her that she could have appendicitis but we do not know that until we do some labs at least to see if her white blood count is elevated and/or CAT scan. She does not want to do any testing and will leave AGAINST MEDICAL ADVICE. The patient is awake and alert and coherent to make decisions and understands the risk of leaving AMA including Departure Diagnosis: Primary Impression: Abdominal pain Abdominal location: right lower quadrant Qualified Codes: R10.31 - Right lower quadrant pain Condition: Stable MARELY MENJIVAR DO Nov 14, 2018 02:14
== END 2018-11-14 02:46 | disposition left against medical advice (07) ==
LOC: FTE 01:27
DX: R10.31 Right lower quadrant pain (principal); I10 Essential (primary) hypertension; R40.2142 Coma scale, eyes open, spontaneous, at arrival to emergency department; R40.2252 Coma scale, best verbal response, oriented, at arrival to emergency department; R40.2362 Coma scale, best motor response, obeys commands, at arrival to emergency department
CPT/HCPCS: 81025; Z7502; 99283

== ENCOUNTER 2018-11-14 09:36 | Emergency (ER) | payer OTHER ==
[~2018-11-14] VITALS: Ht 157.5 cm; Wt 79.0 kg
[2018-11-14 09:39] VITALS: BP 139/78; PULSE 67; RESP 18; Ht 157.5 cm; Wt 79.0 kg
[2018-11-14] MEDS ORDERED: LIDOCAINE/MYLANTA 40 ML BTL PO ONE (10:00)
--- NOTE | 2018-11-14 10:12 | ERD ---
ER Documentation Chief Complaint Chief Complaint HERE DAILY FOR LAST 10 DAYS WITH SAME HPI This is a 37-year-old female who presents for evaluation of multiple complaints that include abdominal pain and headache. Patient also convinced that she is . Despite having multiple negative test. She denies fever, she has not had any vomiting. She has had previous work-up which included labs and a CT abdomen pelvis within the last 3 weeks. ROS All systems reviewed and are negative except as per history of present illness. Medications Home Meds Active Scripts Ibuprofen* (Motrin*) 800 Mg Tab, 800 MG PO Q6H PRN for PAIN AND OR ELEVATED TEMP, #30 TAB Prov:KWABENA FISHER MD 11/11/18 Diphenoxylate HCl/Atropine (Lomotil 2.5-0.025 mg Tablet) 1 Each Tablet, 1 TAB PO QID PRN for DIARRHEA, #10 TAB Prov:KWABENA FISHER MD 11/11/18 Ondansetron (Ondansetron Odt) 4 Mg Tab.rapdis, 4 MG PO Q6H PRN for NAUSEA AND/OR VOMITING, #10 TAB Prov:MATHIEU ROSAS PA-C 11/09/18 Hydroxyzine Hcl* (Hydroxyzine Hcl*) 50 Mg Tablet, 50 MG PO Q6H PRN for ANXIETY, #30 TAB Prov:REGINE REYES 11/04/18 Ibuprofen* (Motrin*) 800 Mg Tab, 800 MG PO Q8 PRN for PAIN AND OR ELEVATED TEMP, #30 TAB Prov:REGINE REYES 11/04/18 Dicyclomine HCl (Dicyclomine HCl) 10 Mg Capsule, 10 MG PO TID PRN for ABDOMINAL CRAMPING, #20 CAP Prov:ANDRIY MOSELEY MD 11/02/18 Acetaminophen* (Tylophen*) 500 Mg Capsule, 1 CAP PO Q6H PRN for PAIN AND OR ELEVATED TEMP, #20 CAP Prov:REGINE REYES 11/02/18 Discontinued Scripts Phenazopyridine Hcl* (Pyridium*) 200 Mg Tab, 200 MG PO TID PRN for URINARY PAIN, #6 TAB Prov:REGINE REYES 11/04/18 Ondansetron Hcl* (Zofran*) 4 Mg Tablet, 4 MG PO Q8H PRN for NAUSEA AND/OR VOMITING, #30 TAB Prov:REGINE REYES 11/02/18 Ibuprofen* (Motrin*) 600 Mg Tab, 600 MG PO Q6H PRN for PAIN AND OR ELEVATED TEMP, #30 TAB Prov:SHOSHANAYANTRINY DEL CID SONAL 11/01/18 Ondansetron Hcl* (Zofran*) 4 Mg Tablet, 4 MG PO Q8H PRN for NAUSEA AND/OR VOMITING, #30 TAB Prov:REGINE REYES 10/31/18 Ibuprofen* (Motrin*) 800 Mg Tab, 800 MG PO Q6H PRN for PAIN AND OR ELEVATED TEMP, #30 TAB Prov:REGINE REYES F 10/31/18 Allergies Allergies: Coded Allergies: No Known Allergy (Unverified , 11/11/18) PMhx/Soc History of Surgery: No Anesthesia Reaction: No Hx Neurological Disorder: No Hx Respiratory Disorders: No Hx Cardiac Disorders: Yes (htn) Hx Psychiatric Problems: Yes (bipolar) Hx Miscellaneous Medical Probl: No Hx Alcohol Use: No Hx Substance Use: No Hx Tobacco Use: No Smoking Status: Never smoker Physical Exam Vitals Vital Signs Date Temp Pulse Resp B/P (MAP) Pulse Ox O2 O2 Flow FiO2 Time Delivery Rate 11/14/18 98.0 67 18 139/78 99 09:39 (98) Physical Exam Const: No acute distress Head: Atraumatic Eyes: Normal Conjunctiva ENT: Normal External Ears, Nose and Mouth. Neck: Full range of motion. No meningismus. Resp: Clear to auscultation bilaterally Cardio: Regular rate and rhythm, no murmurs Abd: Soft, non tender, non distended, no rebound or guarding. Normal bowel sounds Skin: No petechiae or rashes Back: No midline or flank tenderness Ext: No cyanosis, or edema Neur: Awake and alert Psych: Normal Mood and Affect Results 24 hrs Current Medications Medications Dose Sig/Evette Start Time Status Last (Trade) Ordered Route PRN Stop Time Admin Dose Reason Admin 40 ml ONCE ONCE 11/14/18 DC 11/14/18 Miscellaneous PO 10:00 10:03 Medication 11/14/18 10:01 (Gi Cocktail (2)) Procedures/MDM 37-year-old female presents for evaluation of chronic abdominal pain. On exam she has no peritoneal signs, she is well-appearing and nontoxic. I do not suspect an emergent cause for her abdominal pain, I would defer further work-up given that she has already been evaluated extensively. An extensive discussion regarding the fact that the patient has been presenting on a daily basis. There may be a psychiatric component, however she denies any suicidal or homicidal ideations, and she is not gravely disabled. She states that she plans to follow-up with her primary care doctor, at discharge she was in no distress. Departure Diagnosis: Primary Impression: Abdominal pain Abdominal location: unspecified location Qualified Codes: R10.9 - Unspecified abdominal pain Condition: ROGELIO Curran MD Nov 14, 2018 10:12
== END 2018-11-14 10:34 | disposition home or self-care (01) ==
LOC: E/R 09:36
DX: R10.9 Unspecified abdominal pain (principal); I10 Essential (primary) hypertension
CPT/HCPCS: 81025; Z7502; Z7610; 99282

== ENCOUNTER 2018-11-15 06:32 | Emergency (ER) | payer OTHER ==
[~2018-11-15] VITALS: Ht 162.6 cm; Wt 77.9 kg
[~2018-11-15 06:32] MED LIST changes: +IBUP-1542 PO; +ONDA4TAB8 PO; +PHEN-538 PO
[2018-11-15 06:36] VITALS: BP 165/80; PULSE 89; RESP 17; Ht 162.6 cm; Wt 77.9 kg
--- NOTE | 2018-11-15 06:52 | ERD ---
ER Documentation Chief Complaint Chief Complaint abd pain x3 weeks, seen at other hospitals for same s/s HPI This is a 37-year-old female with a history of bipolar who presents to the emerg ency department complaining of nausea. She also states that she has been experiencing abdominal pain. She states that the abdominal pain is a cramping- like sensation most prominent in the epigastric region. She denies any hemoptysis. No hematemesis. No melanotic stools. The patient indicates that she has been compliant with her bipolar medications but she does not know what she takes. She denies any suicidal homicidal thoughts ideations. No auditory tactile visual hallucinations. ROS All systems reviewed and are negative except as per history of present illness. Medications Home Meds Active Scripts Ibuprofen* (Motrin*) 800 Mg Tab, 800 MG PO Q6H PRN for PAIN AND OR ELEVATED TEMP, #30 TAB Prov:KWABENA FISHER MD 11/11/18 Diphenoxylate HCl/Atropine (Lomotil 2.5-0.025 mg Tablet) 1 Each Tablet, 1 TAB PO QID PRN for DIARRHEA, #10 TAB Prov:KWABENA FISHER MD 11/11/18 Ondansetron (Ondansetron Odt) 4 Mg Tab.rapdis, 4 MG PO Q6H PRN for NAUSEA AND/OR VOMITING, #10 TAB Prov:MATHIEU ROSAS PA-C 11/09/18 Hydroxyzine Hcl* (Hydroxyzine Hcl*) 50 Mg Tablet, 50 MG PO Q6H PRN for ANXIETY, #30 TAB Prov:REGINE REYES 11/04/18 Ibuprofen* (Motrin*) 800 Mg Tab, 800 MG PO Q8 PRN for PAIN AND OR ELEVATED TEMP, #30 TAB Prov:REGINE REYES 11/04/18 Dicyclomine HCl (Dicyclomine HCl) 10 Mg Capsule, 10 MG PO TID PRN for ABDOMINAL CRAMPING, #20 CAP Prov:ANDRIY MOSELEY MD 11/02/18 Acetaminophen* (Tylophen*) 500 Mg Capsule, 1 CAP PO Q6H PRN for PAIN AND OR ELEV ATED TEMP, #20 CAP Prov:REGINE REYES 11/02/18 Discontinued Scripts Phenazopyridine Hcl* (Pyridium*) 200 Mg Tab, 200 MG PO TID PRN for URINARY PAIN, #6 TAB Prov:REGINE REYES 11/04/18 Ondansetron Hcl* (Zofran*) 4 Mg Tablet, 4 MG PO Q8H PRN for NAUSEA AND/OR VOMITING, #30 TAB Prov:REGINE REYES 11/02/18 Ibuprofen* (Motrin*) 600 Mg Tab, 600 MG PO Q6H PRN for PAIN AND OR ELEVATED TEMP, #30 TAB Prov:TRINY ARZOLA PA-C 11/01/18 Ondansetron Hcl* (Zofran*) 4 Mg Tablet, 4 MG PO Q8H PRN for NAUSEA AND/OR VOMITING, #30 TAB Prov:REGINE REYES 10/31/18 Ibuprofen* (Motrin*) 800 Mg Tab, 800 MG PO Q6H PRN for PAIN AND OR ELEVATED TEMP, #30 TAB Prov:REGINE REYES 10/31/18 Allergies Allergies: Coded Allergies: No Known Allergy (Unverified , 11/11/18) PMhx/Soc History of Surgery: No Anesthesia Reaction: No Hx Neurological Disorder: No Hx Respiratory Disorders: No Hx Cardiac Disorders: Yes (htn) Hx Psychiatric Problems: Yes (bipolar) Hx Miscellaneous Medical Probl: No Hx Alcohol Use: No Hx Substance Use: No Hx Tobacco Use: No Physical Exam Vitals Vital Signs Date Temp Pulse Resp B/P (MAP) Pulse Ox O2 O2 Flow FiO2 Time Delivery Rate 11/15/18 97.1 89 17 165/80 99 06:36 (108) Physical Exam Constitutional:Well-developed. Well-nourished. HEENT:Normocephalic. Atraumatic.Pupils were equal round reactive to light. Moist mucous membranes. Neck: No nuchal rigidity. No lymphadenopathy. No posterior cervical spine tenderness or step-offs. Respiratory: Not using accessory muscles of respiration.Lungs were clear to auscultation bilaterally. No rhonchi. No rales. No wheezing. Cardiovascular: Regular rate regular rhythm.No murmurs. No rubs were appreciated.S1, S2 normal. Distal pulses are palpable 2+ bilaterally. GI: Abdomen was soft. Nontender. Non Distended. No pulsatile abdominal masses or bruits. No rebound. No guarding. Bowel sounds were present and normal. Skin: No petechia, no purpura. No lesions on the palms or the soles of the feet. No maculopapular rash. NEURO: Patient was alert, awake, orientated x3.No facial droop. Gait observed and normal with no ataxia.Speech had regular rate and rhythm. No focal neurological deficits. PSYCH: Patient had no suicidal homicidal thoughts or ideations. No auditory tac tile visual hallucinations. Procedures/MDM This is a 37-year-old female that presented to the emergency department with nausea and abdominal pain. Her abdominal exam was benign with no peritoneal findings. I reviewed the patient's medical records and she is had significant work-up at [facility] for the same complaint. I explained to the patient that she has been here twice yesterday which was November 14, she was also seen on November 02 fourth fifth sixth and . I indicated to the patient that at this time I did not feel she required any further work-up. She also told me she was seen at [facility] yesterday in addition to be seen twice at [facility]. I indicated to the patient that she will need to follow-up with her primary care physician to undergo an outpatient upper endoscopy and colonoscopy. The patient did not appear to be a threat to herself or others. She was subsequently discharged with no ancillary laboratory work and I did not write any further prescriptions as she stated she had a prescription of Zofran for nausea. The patient was discharged home in fair condition. They were instructed to return to the emergency department at any time if there was any worsening of their condition. The patient stated they would follow up with their PCP in the next 24-48 hours to initiate a suitable medication regimen under the care of their PCP as well as to allow their PCP to monitor any drug reactions. The patient was discharged home with prescriptions after they gave informed consent to the new medication. They were also fully informed by myself on the adverse effects and adverse drug interactions in order to provide adequate safeguards to prevent possible adverse reactions to medications. Departure Diagnosis: Primary Impression: Nausea Condition: Fair Patient Instructions: Nausea Referrals: [facility] (PCP) KWABENA FISHER MD Nov 15, 2018 06:52
== END 2018-11-15 07:05 | disposition home or self-care (01) ==
LOC: E/R 06:32
DX: R11.0 Nausea (principal); I10 Essential (primary) hypertension
CPT/HCPCS: 99282

== ENCOUNTER 2018-11-15 13:43 | Emergency (ER) | payer OTHER ==
[~2018-11-15] VITALS: Ht 165.1 cm; Wt 79.3 kg
[2018-11-15 13:45] VITALS: BP 157/99; PULSE 102; RESP 17; Ht 165.1 cm; Wt 79.3 kg
--- NOTE | 2018-11-15 14:20 | ERD ---
ER Documentation Chief Complaint Chief Complaint ABD PAIN, PT WITH MULTIPLE VISITS IN ER FOR SAME S/S HPI This is a 37-year-old female presented to the emergency department with with a history of bipolar. She presents to the emergency department today with multiple complaints. The patient states she is dizzy. She states she is experience a diarrhea. She states she is experiencing abdominal cramping. She states she is nauseous. Patient denies any suicidal homicidal thoughts ideations. She states she took a Tylenol for her abdominal cramping which she stated was diffuse and a completely resolved. The patient was seen and evaluated earlier in the emergency department by myself today. This is her second visit today and the patient had multiple previous emergency room visits for similar complaints. ROS All systems reviewed and are negative except as per history of present illness. Medications Home Meds Active Scripts Ibuprofen* (Motrin*) 800 Mg Tab, 800 MG PO Q6H PRN for PAIN AND OR ELEVATED TEMP, #30 TAB Prov:KWABENA FISHER MD 11/11/18 Diphenoxylate HCl/Atropine (Lomotil 2.5-0.025 mg Tablet) 1 Each Tablet, 1 TAB PO QID PRN for DIARRHEA, #10 TAB Prov:KWABENA FISHER MD 11/11/18 Ondansetron (Ondansetron Odt) 4 Mg Tab.rapdis, 4 MG PO Q6H PRN for NAUSEA AND/OR VOMITING, #10 TAB Prov:MATHIEU ROSAS PA-C 11/09/18 Hydroxyzine Hcl* (Hydroxyzine Hcl*) 50 Mg Tablet, 50 MG PO Q6H PRN for ANXIETY, #30 TAB Prov:REGINE REYES 11/04/18 Ibuprofen* (Motrin*) 800 Mg Tab, 800 MG PO Q8 PRN for PAIN AND OR ELEVATED TEMP, #30 TAB Prov:REGINE REYES 11/04/18 Dicyclomine HCl (Dicyclomine HCl) 10 Mg Capsule, 10 MG PO TID PRN for ABDOMINAL CRAMPING, #20 CAP Prov:ANDRIY MOSELEY MD 11/02/18 Acetaminophen* (Tylophen*) 500 Mg Capsule, 1 CAP PO Q6H PRN for PAIN AND OR E LEVATED TEMP, #20 CAP Prov:REGINE REYES 11/02/18 Discontinued Scripts Phenazopyridine Hcl* (Pyridium*) 200 Mg Tab, 200 MG PO TID PRN for URINARY PAIN, #6 TAB Prov:REGINE REYES 11/04/18 Ondansetron Hcl* (Zofran*) 4 Mg Tablet, 4 MG PO Q8H PRN for NAUSEA AND/OR VOMITING, #30 TAB Prov:REGINE REYES 11/02/18 Ibuprofen* (Motrin*) 600 Mg Tab, 600 MG PO Q6H PRN for PAIN AND OR ELEVATED TEMP, #30 TAB Prov:TRINY ARZOLA PA-C 11/01/18 Ondansetron Hcl* (Zofran*) 4 Mg Tablet, 4 MG PO Q8H PRN for NAUSEA AND/OR VOMITING, #30 TAB Prov:REGINE REYES 10/31/18 Ibuprofen* (Motrin*) 800 Mg Tab, 800 MG PO Q6H PRN for PAIN AND OR ELEVATED TEMP, #30 TAB Prov:REGINE REYES 10/31/18 Allergies Allergies: Coded Allergies: No Known Allergy (Unverified , 11/11/18) PMhx/Soc History of Surgery: No Anesthesia Reaction: No Hx Neurological Disorder: No Hx Respiratory Disorders: No Hx Cardiac Disorders: Yes (htn) Hx Psychiatric Problems: Yes (bipolar) Hx Miscellaneous Medical Probl: No Hx Alcohol Use: No Hx Substance Use: No Hx Tobacco Use: No Physical Exam Vitals Vital Signs Date Temp Pulse Resp B/P (MAP) Pulse Ox O2 O2 Flow FiO2 Time Delivery Rate 11/15/18 98.4 102 17 157/99 98 13:45 (118) Physical Exam Constitutional:Well-developed. Well-nourished. HEENT:Normocephalic. Atraumatic.Pupils were equal round reactive to light. Moist mucous membranes.No tonsillar exudates. Respiratory: Not using accessory muscles of respiration.Lungs were clear to auscultation bilaterally. No rhonchi. No rales. No wheezing. Cardiovascular: Regular rate regular rhythm.No murmurs. No rubs were appreciated.S1, S2 normal. Distal pulses are palpable 2+ bilaterally. GI: Abdomen was soft. Nontender. Non Distended. No pulsatile abdominal masses or bruits. No rebound. No guarding. Bowel sounds were present and normal. No tenderness of right lower quadrant over McBurney's point. Psoas sign negative. Obturator sign negative. Muscle skeletal: Full range of motion of both the upper and lower extremities bilaterally.Normal muscle tone.No assymetrical calf tenderness or swelling. Skin: No petechia, no purpura. No lesions on the palms or the soles of the feet. No maculopapular rash. NEURO: Patient was alert, awake, orientated x3.No facial droop. Gait observed and normal with no ataxia.Speech had regular rate and rhythm. Patient had no suicidal homicidal thoughts or ideations. Procedures/MDM This is a 37-year-old female with multiple complaints. The patient has a history of bipolar disorder. The patient is not a threat to herself or others. The patient has had multiple previous emergency room visits that was reviewed by the [facility] report myself. I seen the patient earlier today. I repeated my physical exam and the patient's abdomen was benign. I indicated I could the patient Motrin for analgesia control but she refused. That she changed her comp laint stated now she was experiencing diarrhea for several years. I had previously done a significant work-up on the patient several days ago. There is no signs of an infectious process. She has been given a prescription of antidiarrheals. She has no risk factor for C. difficile. I had a significant lengthy discussion with the patient that I any I did not feel she had an emerg ent medical condition at this time and the patient eloped without completion of treatment. Departure Diagnosis: Primary Impression: Abdominal pain Abdominal location: generalized Qualified Codes: R10.84 - Generalized abdominal pain Additional Impression: Diarrhea Diarrhea type: unspecified type Qualified Codes: R19.7 - Diarrhea, unsp ecified Condition: Fair Patient Instructions: Diarrhea, Viral (Child) (Adult), Dizziness, Unk Cause KWABENA FISHER MD Nov 15, 2018 14:19
== END 2018-11-15 14:45 | disposition home or self-care (01) ==
LOC: E/R 13:43
DX: R10.84 Generalized abdominal pain (principal); I10 Essential (primary) hypertension; R19.7 Diarrhea, unspecified
CPT/HCPCS: 99282

== ENCOUNTER 2018-11-17 07:04 | Emergency (ER) | payer OTHER ==
[~2018-11-17] VITALS: Wt 68.2 kg
[~2018-11-17 07:04] MED LIST changes: -IBUP-1542 PO; -ONDA4TAB8 PO; -PHEN-538 PO
[2018-11-17 07:12] VITALS: BP 166/102; PULSE 71; RESP 20
[2018-11-17] MEDS ORDERED: CIPR500T4 PO (07:34)
[2018-11-17] MEDS ORDERED: DIPH1TAB PO (07:34)
--- NOTE | 2018-11-17 07:36 | ERD ---
ER Documentation Chief Complaint Chief Complaint n/v/d HPI This is a 37-year-old female who is here because she has diarrhea she states. She is been here multiple times multiple days this week and she said that she is having some diarrhea that will not go away so she is here for some medication. She has no pain no nausea or vomiting. She says the diarrhea is 2-3 times a day for the past 2 days is nonbloody. She has no melena. No fever ROS All systems reviewed and are negative except as per history of present illness. Medications Home Meds Active Scripts Ciprofloxacin Hcl* (Ciprofloxacin Hcl*) 500 Mg Tablet, 500 MG PO BID for 3 Days, TAB Prov:MARELY MENJIVAR DO 11/17/18 Diphenoxylate HCl/Atropine (Lomotil 2.5-0.025 mg Tablet) 1 Each Tablet, 1 TAB PO QID PRN for DIARRHEA, #10 TAB Prov:MARELY MENJIVAR DO 11/17/18 Ibuprofen* (Motrin*) 800 Mg Tab, 800 MG PO Q6H PRN for PAIN AND OR ELEVATED TEMP, #30 TAB Prov:KWABENA FISHER MD 11/11/18 Diphenoxylate HCl/Atropine (Lomotil 2.5-0.025 mg Tablet) 1 Each Tablet, 1 TAB PO QID PRN for DIARRHEA, #10 TAB Prov:KWABENA FISHER MD 11/11/18 Ondansetron (Ondansetron Odt) 4 Mg Tab.rapdis, 4 MG PO Q6H PRN for NAUSEA AND/OR VOMITING, #10 TAB Prov:MATHIEU ROSAS PA-C 11/09/18 Hydroxyzine Hcl* (Hydroxyzine Hcl*) 50 Mg Tablet, 50 MG PO Q6H PRN for ANXIETY, #30 TAB Prov:REGINE REYES 11/04/18 Ibuprofen* (Motrin*) 800 Mg Tab, 800 MG PO Q8 PRN for PAIN AND OR ELEVATED TEMP, #30 TAB Prov:REGINE REYES 11/04/18 Dicyclomine HCl (Dicyclomine HCl) 10 Mg Capsule, 10 MG PO TID PRN for ABDOMINAL CRAMPING, #20 CAP Prov:ANDRIY MOSELEY MD 11/02/18 Acetaminophen* (Tylophen*) 500 Mg Capsule, 1 CAP PO Q6H PRN for PAIN AND OR ELEVATED TEMP, #20 CAP Prov:REGINE REYES 11/02/18 Discontinued Scripts Phenazopyridine Hcl* (Pyridium*) 200 Mg Tab, 200 MG PO TID PRN for URINARY PAIN, #6 TAB Prov:REGINE REYES 11/04/18 Ondansetron Hcl* (Zofran*) 4 Mg Tablet, 4 MG PO Q8H PRN for NAUSEA AND/OR VOMITING, #30 TAB Prov:REGINE REYES 11/02/18 Ibuprofen* (Motrin*) 600 Mg Tab, 600 MG PO Q6H PRN for PAIN AND OR ELEVATED TEMP, #30 TAB Prov:TRINY ARZOLA PA-C 11/01/18 Ondansetron Hcl* (Zofran*) 4 Mg Tablet, 4 MG PO Q8H PRN for NAUSEA AND/OR VOMITING, #30 TAB Prov:REGINE REYES 10/31/18 Ibuprofen* (Motrin*) 800 Mg Tab, 800 MG PO Q6H PRN for PAIN AND OR ELEVATED TEMP, #30 TAB Prov:REGINE REYES F 10/31/18 Allergies Allergies: Coded Allergies: No Known Allergy (Unverified , 11/11/18) PMhx/Soc History of Surgery: No Anesthesia Reaction: No Hx Neurological Disorder: No Hx Respiratory Disorders: No Hx Cardiac Disorders: Yes (htn) Hx Psychiatric Problems: Yes (bipolar) Hx Miscellaneous Medical Probl: No Hx Alcohol Use: No Hx Substance Use: No Hx Tobacco Use: No FmHx Family History: No coronary disease Physical Exam Vitals Vital Signs Date Temp Pulse Resp B/P (MAP) Pulse Ox O2 O2 Flow FiO2 Time Delivery Rate 11/17/18 97.8 71 20 166/102 99 07:12 (123) Physical Exam Const: Well-developed, well-nourished Head: Atraumatic, normocephalic Eyes: Normal Conjunctiva, PERRLA, EOMI, normal sclera, no nystagmus ENT: Normal External Ears, Nose and Mouth, moist mucus membranes. Neck: Full range of motion. No meningismus, no lymphadenopathy. Resp: Clear to auscultation bilaterally, no wheezing, rhonchi, rales Cardio: Regular rate and rhythm, no murmurs, S1 S2 present Abd: Soft, non tender x 4, non distended. Normal bowel sounds, no guarding or rebound, no pulsitile abdominal masses or bruits Skin: No petechiae or rashes, no ecchymosis , no maculopapular rash Back: No midline or flank tenderness Ext: No cyanosis, or edema, FROM x 4, normal inspection, neurovascularly intact x 4 Neur: Awake and alert, STR 5/5 x 4, sensation intact x 4, no focal findings, cerebellum intact Psych: Normal Mood and Affect Procedures/MDM We will give her a prescription for Lomotil and Cipro in case of infectious diarrhea Departure Diagnosis: Primary Impression: Diarrhea Diarrhea type: unspecified type Qualified Codes: R19.7 - Diarrhea, unspecified Condition: Stable Patient Instructions: Diarrhea, Viral (/Toddler) MARELY MENJIVAR DO Nov 17, 2018 07:36
== END 2018-11-17 08:25 | disposition home or self-care (01) ==
LOC: E/R 07:04
DX: R19.7 Diarrhea, unspecified (principal); I10 Essential (primary) hypertension
CPT/HCPCS: 99283

== ENCOUNTER 2018-11-17 14:46 | Emergency (ER) | payer OTHER ==
[~2018-11-17] VITALS: Wt 77.3 kg
[~2018-11-17 14:46] MED LIST changes: +CIPR500T4 PO
[2018-11-17 14:48] VITALS: BP 145/89; PULSE 76; RESP 20
--- NOTE | 2018-11-17 14:59 | ERD ---
ER Documentation Chief Complaint Chief Complaint Multiple complaints HPI 37-year-old female presents the emergency department with multiple complaints. She is bipolar and is been to our emergency department multiple times for abdominal pain, headaches, diarrhea and other nonspecific symptoms. She is had multiple diagnostic evaluations including imaging and lab tests within the last few weeks all of which have been normal. She was evaluated this morning with similar type concerns. She returns this afternoon with ongoing symptoms dating "I did not have a chance to go get the medicines." She reports no suicidal or homicidal thoughts. She reports no localizing abdominal pain or fevers. ROS All systems reviewed and are negative except as per history of present illness. Medications Home Meds Active Scripts Ciprofloxacin Hcl* (Ciprofloxacin Hcl*) 500 Mg Tablet, 500 MG PO BID for 3 Days, TAB Prov:MARELY MENJIVAR DO 11/17/18 Diphenoxylate HCl/Atropine (Lomotil 2.5-0.025 mg Tablet) 1 Each Tablet, 1 TAB PO QID PRN for DIARRHEA, #10 TAB Prov:MARELY MENJIVAR DO 11/17/18 Ibuprofen* (Motrin*) 800 Mg Tab, 800 MG PO Q6H PRN for PAIN AND OR ELEVATED TEMP, #30 TAB Prov:KWABENA FISHER MD 11/11/18 Diphenoxylate HCl/Atropine (Lomotil 2.5-0.025 mg Tablet) 1 Each Tablet, 1 TAB PO QID PRN for DIARRHEA, #10 TAB Prov:KWABENA FISHER MD 11/11/18 Ondansetron (Ondansetron Odt) 4 Mg Tab.rapdis, 4 MG PO Q6H PRN for NAUSEA AND/OR VOMITING, #10 TAB Prov:MATHIEU ROSAS PA-C 11/09/18 Hydroxyzine Hcl* (Hydroxyzine Hcl*) 50 Mg Tablet, 50 MG PO Q6H PRN for ANXIETY, #30 TAB Prov:REGINE REYES 11/04/18 Ibuprofen* (Motrin*) 800 Mg Tab, 800 MG PO Q8 PRN for PAIN AND OR ELEVATED TEMP, #30 TAB Prov:REGINE REYES 11/04/18 Dicyclomine HCl (Dicyclomine HCl) 10 Mg Capsule, 10 MG PO TID PRN for ABDOMINAL CRAMPING, #20 CAP Prov:ANDRIY MOSELEY MD 11/02/18 Acetaminophen* (Tylophen*) 500 Mg Capsule, 1 CAP PO Q6H PRN for PAIN AND OR ELEVATED TEMP, #20 CAP Prov:REGINE REYES 11/02/18 Discontinued Scripts Phenazopyridine Hcl* (Pyridium*) 200 Mg Tab, 200 MG PO TID PRN for URINARY PAIN, #6 TAB Prov:REGINE REYES 11/04/18 Ondansetron Hcl* (Zofran*) 4 Mg Tablet, 4 MG PO Q8H PRN for NAUSEA AND/OR VOM ITING, #30 TAB Prov:REGINE REYES 11/02/18 Ibuprofen* (Motrin*) 600 Mg Tab, 600 MG PO Q6H PRN for PAIN AND OR ELEVATED TEMP, #30 TAB Prov:TRINY ARZOLA PA-C 11/01/18 Ondansetron Hcl* (Zofran*) 4 Mg Tablet, 4 MG PO Q8H PRN for NAUSEA AND/OR VOMITING, #30 TAB Prov:REGINE REYES 10/31/18 Ibuprofen* (Motrin*) 800 Mg Tab, 800 MG PO Q6H PRN for PAIN AND OR ELEVATED TEMP, #30 TAB Prov:REGINE REYES 10/31/18 Allergies Allergies: Coded Allergies: No Known Allergy (Unverified , 11/11/18) PMhx/Soc History of Surgery: No Anesthesia Reaction: No Hx Neurological Disorder: No Hx Respiratory Disorders: No Hx Cardiac Disorders: Yes (htn) Hx Psychiatric Problems: Yes (bipolar) Hx Miscellaneous Medical Probl: No Hx Alcohol Use: No Hx Substance Use: No Hx Tobacco Use: No FmHx Unknown at this time Physical Exam Vitals Vital Signs Date Temp Pulse Resp B/P (MAP) Pulse Ox O2 O2 Flow FiO2 Time Delivery Rate 11/17/18 98.6 76 20 145/89 97 14:48 (107) Physical Exam GENERAL: The patient is well developed and appropriate for usual state of health in no apparent distress HEENT: Pupils equal, round, and reactive to light. EOMI. There is no scleral icterus. NECK: C-spine is soft and supple, there is no meningismus. There is no cervical lymphadenopathy. LUNGS: Clear to auscultation bilaterally. There are no rales, wheezes or rhonchi. HEART: Regular rate and rhythm, no murmurs, clicks, rubs or gallops. ABDOMEN: Soft, non-tender, non-distended. There are bowel sounds in all four quadrants. No rebound or guarding. EXTREMITIES: There is no peripheral cyanosis or edema. No focal swelling or erythema. NEURO: The patient moves all four extremities with 5/5 strength. Cranial nerves II - XII are intact. Normal gait. Alert and oriented SKIN: There is no apparent rash or petechiae. HEME/LYMPHATIC: There is no evidence of excessive bruising or lymphedema. PSYCHIATRIC: Patient is awake alert and able to express a care plan for herself. She has a somewhat tangential thought process and may be responding to and appropriate internal stimuli. However, she is not agitated or violent and appears able to negotiate community. She is denying suicidal or homicidal thoughts. Procedures/MDM Patient was taken to a room, seen and examined Medical decision makin-year-old bipolar patient presents the emergency department again with nonspecific complaints. Her medical screening examination shows no evidence of significant decompensated medical disease. From the standpoint of her psychiatric illness, she states that she is compliant with her psychiatric medications and does have outpatient follow-up. She is not a danger to herself or others and does not appear to require inpatient psychiatric care at this time and seems appropriate for discharge. Departure Diagnosis: Primary Impression: Bipolar disorder Condition: Stable Additional Instructions: Please see your doctor and psychiatrist as soon as possible. Take the medicine you were prescribed. Return for any problems or concerns YULI MCKEON Nov 17, 2018 14:59
== END 2018-11-17 18:06 | disposition home or self-care (01) ==
LOC: E/R 14:46
DX: F31.9 Bipolar disorder, unspecified (principal); I10 Essential (primary) hypertension
CPT/HCPCS: 99283

== ENCOUNTER 2018-11-18 07:38 | Emergency (ER) | payer OTHER ==
[~2018-11-18] VITALS: Ht 162.6 cm; Wt 79.0 kg
[2018-11-18 07:43] VITALS: BP 168/86; PULSE 85; RESP 24; Ht 162.6 cm; Wt 79.0 kg
--- NOTE | 2018-11-18 08:20 | ERD ---
ER Documentation Chief Complaint Chief Complaint abdominal pain, diarrhea, vomitting HPI This is a 37-year-old female with a past medical history of hypertension, bipolar, chronic headaches, chronic abdominal pain who is presenting today for persistent pain. The patient endorses waxing and waning cramping general ab dominal pain. The patient endorses occasional episodes of diarrhea. She also endorses a mild frontal headache. She does not endorse any exacerbating factors. She reportedly took Tylenol this morning, now she feels better. This is now the 16th visit this month and 18 days. The patient has had multiple diagnostic evaluations including imaging and laboratory diagnostic testing over the last few weeks which have been unremarkable. She has been prescribed Lomotil, Bentyl, Pyridium, ibuprofen and ciprofloxacin by previous providers this month. The patient does have a history of bipolar disorder but reports compliance with her medications. She does not endorse any suicidal or homicidal ideations. She does not endorse any auditory or visual limitations. The patient denies feeling sick recently. The patient denies fever or chills. The patient has had no vision changes. The patient does not endorse neck or back pain. The patient denies lightheadedness or dizziness. The patient has had no chest pain or trouble breathing. The patient denies changes to urination. The patient has had no focal deficits. The patient has had no weakness or numbness or tingling to the face or extremities. ROS All systems reviewed and are negative except as per history of present illness. Medications Home Meds Active Scripts Ciprofloxacin Hcl* (Ciprofloxacin Hcl*) 500 Mg Tablet, 500 MG PO BID for 3 Days, TAB Prov:MARELY MENJIVAR DO 11/17/18 Diphenoxylate HCl/Atropine (Lomotil 2.5-0.025 mg Tablet) 1 Each Tablet, 1 TAB PO QID PRN for DIARRHEA, #10 TAB Prov:MARELY MENJIVAR DO 11/17/18 Ibuprofen* (Motrin*) 800 Mg Tab, 800 MG PO Q6H PRN for PAIN AND OR ELEVATED TEMP, #30 TAB Prov:KWABENA FISHER MD 11/11/18 Ondansetron (Ondansetron Odt) 4 Mg Tab.rapdis, 4 MG PO Q6H PRN for NAUSEA AND/OR VOMITING, #10 TAB Prov:MATHIEU ROSAS PA-C 11/09/18 Hydroxyzine Hcl* (Hydroxyzine Hcl*) 50 Mg Tablet, 50 MG PO Q6H PRN for ANXIETY, #30 TAB Prov:REGINE REYES 11/04/18 Acetaminophen* (Tylophen*) 500 Mg Capsule, 1 CAP PO Q6H PRN for PAIN AND OR ELEVATED TEMP, #20 CAP Prov:REGINE REYES 11/02/18 Discontinued Scripts Diphenoxylate HCl/Atropine (Lomotil 2.5-0.025 mg Tablet) 1 Each Tablet, 1 TAB PO QID PRN for DIARRHEA, #10 TAB Prov:KWABENA FISHER MD 11/11/18 Ibuprofen* (Motrin*) 800 Mg Tab, 800 MG PO Q8 PRN for PAIN AND OR ELEVATED TEMP, #30 TAB Prov:REGINE REYES 11/04/18 Dicyclomine HCl (Dicyclomine HCl) 10 Mg Capsule, 10 MG PO TID PRN for ABDOMINAL CRAMPING, #20 CAP Prov:ANDRIY MOSELEY MD 11/02/18 Phenazopyridine Hcl* (Pyridium*) 200 Mg Tab, 200 MG PO TID PRN for URINARY PAIN, #6 TAB Prov:REGINE REYES 11/04/18 Ondansetron Hcl* (Zofran*) 4 Mg Tablet, 4 MG PO Q8H PRN for NAUSEA AND/OR VOMITING, #30 TAB Prov:REGINE REYES 11/02/18 Ibuprofen* (Motrin*) 600 Mg Tab, 600 MG PO Q6H PRN for PAIN AND OR ELEVATED TEMP, #30 TAB Prov:TRINY ARZOLA PA-C 11/01/18 Ondansetron Hcl* (Zofran*) 4 Mg Tablet, 4 MG PO Q8H PRN for NAUSEA AND/OR VOMITING, #30 TAB Prov:REGINE REYES 10/31/18 Ibuprofen* (Motrin*) 800 Mg Tab, 800 MG PO Q6H PRN for PAIN AND OR ELEVATED TEMP, #30 TAB Prov:REGINE REYES 10/31/18 Allergies Allergies: Coded Allergies: No Known Allergy (Unverified , 11/17/18) PMhx/Soc History of Surgery: No Anesthesia Reaction: No Hx Neurological Disorder: No Hx Respiratory Disorders: No Hx Cardiac Disorders: Yes (Hypertension) Hx Psychiatric Problems: Yes (Bipolar disorder) Hx Miscellaneous Medical Probl: No Hx Alcohol Use: No Hx Substance Use: No Hx Tobacco Use: No FmHx Family History: No diabetes Physical Exam Vitals Vital Signs Date Temp Pulse Resp B/P (MAP) Pulse Ox O2 O2 Flow FiO2 Time Delivery Rate 11/18/18 97.8 85 24 168/86 100 07:43 (113) Physical Exam Const: No acute distress Head: Atraumatic Eyes: Normal Conjunctiva ENT: Normal External Ears, Nose and Mouth. Neck: Full range of motion. No meningismus. Resp: Clear to auscultation bilaterally Cardio: Regular rate and rhythm, no murmurs Abd: Soft, non tender, non distended. Normal bowel sounds Skin: No petechiae or rashes Back: No midline or flank tenderness Ext: No cyanosis, or edema Neur: Awake and alert Psych: Normal Mood and Affect Procedures/MDM MDM The patient's presentation warrants further investigation. Previous medical records, if available, were reviewed. LABS The patient's laboratory testing was reviewed from November 11, 2018. I do not feel that repeat laboratory testing is warranted at this time. CBC: No E/o systemic infection or severe anemia or thrombocytopenia Chemistry: No E/o severe acidosis or alkalosis or renal failure or liver disease or diabetic ketoacidosis Lipase: No E/o pancreatitis PT/INR: No E/o significant coagulopathy IMAGING Radiology interpretation reviewed from November 02, 2018 CT abdomen pelvis FINDINGS: There is streak artifact degrading optimal evaluation. The kidney are normal in size without intra renal masses or calculi bilaterally. Mild prominent right and left extrarenal pelves slightly larger on the right but no e vidence of hydronephrosis bilaterally. No evidence ureteral calcified calculi or dilatation. Urinary bladder unremarkable. Anteverted anteflexed otherwise unremarkable uterus. Multiple small low densities in the left adnexa likely a left ovarian cyst. No right adnexal mass. Follow-up pelvic ultrasound may be helpful. No evidence of intra-abdominal free air, free fluid, abscesses or lymphadenopathy. Diffuse hepatic fatty infiltration. No focal hepatic lesions. Spleen pancreas adrenal glands and gallbladder are unremarkable. No evidence of biliary ductal dilation. Stomach, small bowel, and appendix are unremarkable. Moderate stool burden throughout the colon. Rule out constipation. Colon is otherwise unremarkable. Abdominal pelvic wall unremarkable. Aorta unremarkable. Lung bases unremarkable. Degenerative changes lower thoracic and lumbar spine without acute osseous findings or osteoblastic/osteolytic lesions. IMPRESSION: 1. Streak artifact degrading optimal evaluation. 2. No evidence of calcified urinary calculi or obstructive uropathy bilaterally. 3. Small low densities left adnexa likely ovarian cysts. Pelvic ultrasound may be helpful. 4. Moderate stool burden throughout the colon and rule out constipation. No evidence of diverticulitis or appendicitis. No bowel obstruction. 5. Hepatic fatty infiltration. Electronically viewed and signed by Physician Kelechi on 11/02/2018 09:50 TREATMENT/DISPOSITION The patient presents for chronic now resolved complaints. The patient has medications through prescriptions that I feel are appropriate. I do not feel that any emergent diagnostic testing the patient does not require any emergent treatment. The patient reports chronic abdominal pain, but her abdominal exam is completely benign. The patient does not have any evidence of peritonitis. The patient does not have clinical symptoms concerning for mesenteric ischemia or ischemic colitis. The patient does not have right upper quadrant tenderness, and I have low suspicion for gallstones, cholecystitis or biliary colic. The patient does not have any epigastric pain. I have low suspicion for gastritis, PUD or GERD. The patient does not have left upper quadrant tenderness. I have low suspicion for pancreatitis. The patient does not have any right lower quadrant tenderness, or periumbilical tenderness. I have low suspicion for appendicitis. The patient does not have suprapubic tenderness. I have decreased suspicion for cystitis. The patient does not have any left lower quadrant tenderness, and I have low suspicion for diverticulosis or diverticulitis. The patient does not have any flank tenderness. The patient does not have gross hematuria. I have decreased suspicion for nephrolithiasis or renal colic. The patient does not have any palpable pulsatile mass or severe abdominal pain radiating to the back. I have low suspicion for aortic aneurysm, dissection or rupture. The patient also reports a now resolved headache. The patient has a long- standing history of chronic headaches. Differential diagnosis includes migraine, tension headache, cluster headache. The patient has no focal deficits. The neurologic exam is reassuring. I have decreased suspicion for cerebral ischemia. There was no trauma or injury. There is no personal or family history of cerebral aneurysm. This is not the worst headache of the patient's life. It was not acutely severe. It is been progressive in nature. I have decreased suspicion for SAH or other ICH. I have low suspicion for temporal arteritis, cavernous venous thrombosis, subdural hematoma, epidural hematoma, meningitis. The patient does have a history of bipolar disorder. She is not suicidal or h omicidal. She does not endorse any symptoms concerning for psychosis. I do not feel that she is undergoing a manic episode at this time. The patient may continue to manage her bipolar disorder in the outpatient setting. DISCHARGE Upon reevaluation of the patient, symptoms have improved. No emergent diagnoses were identified. At this time, I feel that the patient stable for discharge. The patient was instructed to follow-up with a primary care physician in 1-3 days. The patient will be given strict precautions with which to return to the emergency department. Prescriptions: None The patient's blood pressure was elevated at greater than 120/80 while in the emergency department. The patient was otherwise stable with no evidence of hypertensive urgency or emergency. The patient does not require admission for blood pressure control. I have discussed with the patient the risks of hypertension. I have instructed the patient to return to the ER for any new or worsening symptoms including chest pain, shortness of breath, headache, blurred vision, confusion, nausea, vomiting or LOC. I have advised the patient to follow up with the primary care physician for outpatient monitoring and treatment for hypertension in 1-3 days. Disclaimer: Inadvertent spelling and grammatical errors are likely due to EHR/dictation software use and do not reflect on the overall quality of patient care. Note that the electronic time recorded on this note does not necessarily reflect the actual time of the patient encounter. Departure Diagnosis: Primary Impression: Multiple complaints Additional Impressions: Abdominal pain Abdominal location: unspecified location Qualified Codes: R10.9 - Unspecified abdominal pain Headache Headache type: unspecified Headache chronicity pattern: unspecified pattern Intractability: not intractable Qualified Codes: R51 - Headache Condition: Stable Patient Instructions: Abdominal Pain, Self-Care for Headaches Additional Instructions: Thank you for for coming to [facility] for your care today. Please ask your nurse or provider if you have questions about your care today and do not leave until all your questions have been answered. Please use any medications given as directed and follow-up with your doctor (or the doctor you were referred to) in the next 1-3 days. If you do not have a primary care doctor you may follow up at [place] [facility] [place] [facility] (listed below). You may also use motrin and tylenol as needed for fever and/or pain unless ins tructed otherwise by your provider or nurse. Indications for more urgent follow- up have been discussed, but you may return to the Emergency Department at ANY time for any worrisome or worsening symptoms. If you have abdominal pain, please know that no test or exam you received is perfect and you should follow up within 8 hours for continued pain. If you had any imaging studies today, such as an X-Ray or CT Scan, these studies will be reviewed later by a radiologist. You will be called if there are importa nt findings that were not identified today, so make sure the contact information you provided at registration is correct. If you received any narcotic pain control medicine today, such as Vicodin, Morphine or Dilaudid, your coordination and judgment may be affected for a number of hours. Please do not drive or operate heavy machinery, and you may want someone to assist you at home. If you were given a prescription for narcotic medication, be aware that it is very addictive- use sparingly and only if necessary. PLEASE SEEK FURTHER EVALUATION AND MANAGEMENT AT YOUR DOCTORS OFFICE WITHIN THE NEXT 1-3 DAYS. IT IS YOUR RESPONSIBILITY TO MAKE AN APPOINTMENT FOR FOLOW-UP CARE. IF YOU HAVE A PRIMARY DOCTOR, PLEASE CALL THEIR OFFICE TO SCHEDULE AN APPOINTMENT FOR FOLLOW UP. IF YOU DO NOT HAVE A PRIMARY DOCTOR YOU CAN CALL OUR PHYSICIAN REFERRAL HOTLINE AT IF YOU CAN NOT AFFORD TO SEE A PHYSICIAN YOU CAN CHOSE FROM THE FOLLOWING [facility]: [facility] [address] [facility] [address] [facility]. [facility] [address] [facility] [address] [facility] [address] [facility]. [address] LEATHA BARRIENTOS MD Nov 18, 2018 08:20
== END 2018-11-18 10:13 | disposition home or self-care (01) ==
LOC: E/R 07:38
DX: R10.84 Generalized abdominal pain (principal); R51 Headache; R19.7 Diarrhea, unspecified; R11.10 Vomiting, unspecified
CPT/HCPCS: 99282

== ENCOUNTER 2018-11-19 10:28 | Emergency (ER) | payer OTHER ==
[~2018-11-19] VITALS: Wt 71.0 kg
[~2018-11-19 10:28] MED LIST changes: -DICY10CA40 PO
[2018-11-19 10:31] VITALS: BP 162/71; PULSE 78; RESP 18
--- NOTE | 2018-11-19 10:50 | ERD ---
ER Documentation Chief Complaint Chief Complaint ABD PAIN WITH DIARRHEA SINCE THIS MORNING HPI This is a 37-year-old female with a past medical history of hypertension, bipolar, chronic headaches, chronic abdominal pain who is presenting today for a checkup. The patient believes that she may have eaten some bad food. The patient endorses continued waxing and waning cramping general abdominal pain. The patient endorses occasional episodes of loose watery brown nonbloody diarrhea. She reports nausea but no vomiting. She does not endorse any exacerbating factors. This is now the 17th visit this month and 19 days. The patient has had multiple diagnostic evaluations including imaging and laboratory diagnostic testing over the last few weeks which have been unremarkable. She has been prescribed Lomotil, Bentyl, Pyridium, ibuprofen and ciprofloxacin by previous providers this month. The patient does have a history of bipolar disorder but reports compliance with her medications. She does not endorse any suicidal or homicidal ideations. She does not endorse any auditory or visual limitations. The patient denies feeling sick recently. The patient denies fever or chills. The patient has had no headache or vision changes today. The patient does not endorse neck or back pain. The patient denies lightheadedness or dizziness. The patient has had no chest pain or trouble breathing. The patient denies changes to urination. The patient has had no focal deficits. The patient has had no weakness or numbness or tingling to the face or extremities. ROS All systems reviewed and are negative except as per history of present illness. Medications Home Meds Active Scripts Ciprofloxacin Hcl* (Ciprofloxacin Hcl*) 500 Mg Tablet, 500 MG PO BID for 3 Days, TAB Prov:MARELY MENJIVAR DO 11/17/18 Diphenoxylate HCl/Atropine (Lomotil 2.5-0.025 mg Tablet) 1 Each Tablet, 1 TAB PO QID PRN for DIARRHEA, #10 TAB Prov:MARELY MENJIVAR DO 11/17/18 Ibuprofen* (Motrin*) 800 Mg Tab, 800 MG PO Q6H PRN for PAIN AND OR ELEVATED TEMP, #30 TAB Prov:KWABENA FISHER MD 11/11/18 Ondansetron (Ondansetron Odt) 4 Mg Tab.rapdis, 4 MG PO Q6H PRN for NAUSEA AND/OR VOMITING, #10 TAB Prov:MATHIEU ROSAS PA-C 11/09/18 Hydroxyzine Hcl* (Hydroxyzine Hcl*) 50 Mg Tablet, 50 MG PO Q6H PRN for ANXIETY, #30 TAB Prov:REGINE REYES 11/04/18 Acetaminophen* (Tylophen*) 500 Mg Capsule, 1 CAP PO Q6H PRN for PAIN AND OR ELEVATED TEMP, #20 CAP Prov:REGINE REYES 11/02/18 Discontinued Scripts Diphenoxylate HCl/Atropine (Lomotil 2.5-0.025 mg Tablet) 1 Each Tablet, 1 TAB PO QID PRN for DIARRHEA, #10 TAB Prov:KWABENA FISHER MD 11/11/18 Ibuprofen* (Motrin*) 800 Mg Tab, 800 MG PO Q8 PRN for PAIN AND OR ELEVATED TEMP, #30 TAB Prov:SERGIOKENYAREGINE 11/04/18 Dicyclomine HCl (Dicyclomine HCl) 10 Mg Capsule, 10 MG PO TID PRN for ABDOMINAL CRAMPING, #20 CAP Prov:ANDRIY MOSELEY MD 11/02/18 Allergies Allergies: Coded Allergies: No Known Allergy (Unverified , 11/17/18) PMhx/Soc History of Surgery: No Anesthesia Reaction: No Hx Neurological Disorder: No Hx Respiratory Disorders: No Hx Cardiac Disorders: Yes (Hypertension) Hx Psychiatric Problems: Yes (Bipolar disorder) Hx Miscellaneous Medical Probl: No Hx Alcohol Use: No Hx Substance Use: No Hx Tobacco Use: No FmHx Family History: No diabetes Physical Exam Vitals Vital Signs Date Temp Pulse Resp B/P (MAP) Pulse Ox O2 O2 Flow FiO2 Time Delivery Rate 11/19/18 98.1 78 18 162/71 99 10:31 (101) Physical Exam Const: No acute distress Head: Atraumatic Eyes: Normal Conjunctiva ENT: Normal External Ears, Nose and Mouth. Neck: Full range of motion. No meningismus. Resp: Clear to auscultation bilaterally Cardio: Regular rate and rhythm, no murmurs Abd: Soft, non tender, non distended. Normal bowel sounds Skin: No petechiae or rashes Back: No midline or flank tenderness Ext: No cyanosis, or edema Neur: Awake and alert Psych: Normal Mood. Odd Affect Procedures/MDM MDM The patient's presentation warrants further investigation. Previous medical records, if available, were reviewed. LABS The patient's laboratory testing was reviewed from November 11, 2018. I do not feel that repeat laboratory testing is warranted at this time. CBC: No E/o systemic infection or severe anemia or thrombocytopenia Chemistry: No E/o severe acidosis or alkalosis or renal failure or liver disease or diabetic ketoacidosis Lipase: No E/o pancreatitis PT/INR: No E/o significant coagulopathy IMAGING Radiology interpretation reviewed from November 02, 2018 CT abdomen pelvis FINDINGS: There is streak artifact degrading optimal evaluation. The kidney are normal in size without intra renal masses or calculi bilaterally. Mild prominent right and left extrarenal pelves slightly larger on the right but no evidence of hydronephrosis bilaterally. No evidence ureteral calcified calculi or dilatation. Urinary bladder unremarkable. Anteverted anteflexed otherwise unremarkable uterus. Multiple small low densities in the left adnexa likely a left ovarian cyst. No right adnexal mass. Follow-up pelvic ultrasound may be helpful. No evidence of intra-abdominal free air, free fluid, abscesses or lymphadenopathy. Diffuse hepatic fatty infiltration. No focal hepatic lesions. Spleen pancreas adrenal glands and gallbladder are unremarkable. No evidence of biliary ductal dilation. Stomach, small bowel, and appendix are unremarkable. Moderate stool burden throughout the colon. Rule out constipation. Colon is otherwise unremarkable. Abdominal pelvic wall unremarkable. Aorta unremarkable. Lung bases unremarkable. Degenerative changes lower thoracic and lumbar spine without acute osseous findings or osteoblastic/osteolytic lesions. IMPRESSION: 1. Streak artifact degrading optimal evaluation. 2. No evidence of calcified urinary calculi or obstructive uropathy bilaterally. 3. Small low densities left adnexa likely ovarian cysts. Pelvic ultrasound may be helpful. 4. Moderate stool burden throughout the colon and rule out constipation. No evidence of diverticulitis or appendicitis. No bowel obstruction. 5. Hepatic fatty infiltration. Electronically viewed and signed by Isaiah Mancuso Physician on 11/02/2018 09:50 TREATMENT/DISPOSITION The patient presents for desire for a checkup for chronic symptoms. The patient has medications through prescriptions that I feel are appropriate. I do not feel that any emergent diagnostic testing the patient does not require any emergent treatment. The patient was offered Zofran and Tylenol for symptom control, but she declined. She reports that she does not need any medications at this time. She just wants to make sure that everything is all right. The patient reports chronic abdominal pain, but her abdominal exam is completely benign. The patient does not have any evidence of peritonitis. The patient does not have clinical symptoms concerning for mesenteric ischemia or ischemic colitis. The patient does not have right upper quadrant tenderness, and I have low suspicion for gallstones, cholecystitis or biliary colic. The patient does not have any epigastric pain. I have low suspicion for gastritis, PUD or GERD. The patient does not have left upper quadrant tenderness. I have low suspicion for pancreatitis. The patient does not have any right lower quadrant tenderness, or periumbilical tenderness. I have low suspicion for appendicitis. The patient does not have suprapubic tenderness. I have decreased suspicion for cystitis. The patient does not have any left lower quadrant tenderness, and I have low suspicion for diverticulosis or diverticulitis. The patient does not have any flank tenderness. The patient does not have gross hematuria. I have decreased suspicion for nephrolithiasis or renal colic. The patient does not have any palpable pulsatile mass or severe abdominal pain radiating to the back. I have low suspicion for aortic aneurysm, dissection or rupture. The patient does have a history of bipolar disorder. She is not suicidal or homicidal. She does not endorse any symptoms concerning for psychosis. I do not feel that she is undergoing a manic episode at this time. The patient may continue to manage her bipolar disorder in the outpatient setting. DISCHARGE Upon reevaluation of the patient, symptoms have improved. No emergent diagnoses were identified. At this time, I feel that the patient stable for discharge. The patient was instructed to follow-up with a primary care physician in 1-3 days. The patient will be given strict precautions with which to return to the emergency department. Prescriptions: None The patient's blood pressure was elevated at greater than 120/80 while in the emergency department. The patient was otherwise stable with no evidence of hypertensive urgency or emergency. The patient does not require admission for blood pressure control. I have discussed with the patient the risks of hy pertension. I have instructed the patient to return to the ER for any new or worsening symptoms including chest pain, shortness of breath, headache, blurred vision, confusion, nausea, vomiting or LOC. I have advised the patient to follow up with the primary care physician for outpatient monitoring and treatment for hypertension in 1-3 days. Disclaimer: Inadvertent spelling and grammatical errors are likely due to EHR/dictation software use and do not reflect on the overall quality of patient care. Note that the electronic time recorded on this note does not necessarily reflect the actual time of the patient encounter. Departure Diagnosis: Primary Impression: Abdominal pain Abdominal location: generalized Qualified Codes: R10.84 - Generalized abdominal pain Additional Impressions: Nausea Diarrhea Diarrhea type: unspecified type Qualified Codes: R19.7 - Diarrhea, unspecified Condition: Stable Patient Instructions: Abdominal Pain, Nausea, Self-Care for Vomiting and Diarrhea Additional Instructions: Thank you for for coming to [facility] for your care today. Please ask your nurse or provider if you have questions about your care today and do not leave until all your questions have been answered. Please use any medications given as directed and follow-up with your doctor (or the doctor you were referred to) in the next 1-3 days. If you do not have a primary care doctor you may follow up at the [facility] or [facility] (listed below). You may also use motrin and tylenol as needed for fever and/or pain unless instructed otherwise by your provider or nurse. Indications for more urgent follow-up have been discussed, but you may return to the Emergency Department at ANY time for any worrisome or worsening symptoms. If you have abdominal pain, please know that no test or exam you received is perfect and you should follow up within 8 hours for continued pain. If you had any imaging studies today, such as an X-Ray or CT Scan, these studies will be reviewed later by a radiologist. You will be called if there are important findings that were not identified today, so make sure the contact information you provided at registration is correct. If you received any narcotic pain control medicine today, such as Vicodin, Morphine or Dilaudid, your coordination and judgment may be affected for a number of hours. Please do not drive or operate heavy machinery, and you may want someone to assist you at home. If you were given a prescription for narcotic medication, be aware that it is very addictive- use sparingly and only if necessary. PLEASE SEEK FURTHER EVALUATION AND MANAGEMENT AT YOUR DOCTORS OFFICE WITHIN THE NEXT 1-3 DAYS. IT IS YOUR RESPONSIBILITY TO MAKE AN APPOINTMENT FOR FOLOW-UP CARE. IF YOU HAVE A PRIMARY DOCTOR, PLEASE CALL THEIR OFFICE TO SCHEDULE AN APPOINTMENT FOR FOLLOW UP. IF YOU DO NOT HAVE A PRIMARY DOCTOR YOU CAN CALL OUR PHYSICIAN REFERRAL HOTLINE AT IF YOU CAN NOT AFFORD TO SEE A PHYSICIAN YOU CAN CHOSE FROM THE FOLLOWING [facility] CLINICS: [facility] [address] [facility] [address] [facility]. [facility] [address] [facility] [address] [facility] [address] [facility]. [facility] [address] LEATHA BARRIENTOS MD Nov 19, 2018 10:49
== END 2018-11-19 11:51 | disposition left against medical advice (07) ==
LOC: E/R 10:28
DX: R10.84 Generalized abdominal pain (principal); I10 Essential (primary) hypertension; R19.7 Diarrhea, unspecified; R11.0 Nausea
CPT/HCPCS: 99282

== ENCOUNTER 2018-11-25 13:36 | Emergency (ER) | payer OTHER ==
[~2018-11-25] VITALS: Ht 157.5 cm; Wt 77.8 kg
[~2018-11-25 13:36] MED LIST changes: +CEPH-443 PO; +SULF1TAB31 PO
[2018-11-25 14:03] VITALS: BP 158/82; PULSE 69; RESP 18; Ht 157.5 cm; Wt 77.8 kg
--- NOTE | 2018-11-25 15:41 | ERD ---
ER Documentation Chief Complaint Chief Complaint ap with n/v starting last night HPI This is a 37-year-old female with a past medical history of hypertension, bipolar, chronic abdominal pain who is presenting today with complaint of dysuria, lower back pain, and bilateral lower abdominal pain.. The patient endorses continued waxing and waning cramping general abdominal pain. The patient endorses occasional episodes of loose watery brown nonbloody diarrhea. She reports one episode of vomiting a day for the past week. Vomitus described as nonbilious and nonbloody. She does not endorse any exacerbating factors. Patient has been here many times in the last month. CT [facility] and was negative. Ultrasound of gallbladder was also negative. The patient has had multiple diagnostic evaluations including imaging and laboratory diagnostic testing over the last few weeks which have been unremarkable. She has been prescribed Lomotil, Bentyl, Pyridium, ibuprofen and ciprofloxacin by previous providers this month. The patient does have a history of bipolar disorder but reports compliance with her medications. She does not endorse any suicidal or homicidal ideations. She does not endorse any auditory or visual limitations. Patient denies any fevers, flank pain, abnormal vaginal discharge, chest pain, headache. ROS All systems reviewed and are negative except as per history of present illness. Medications Home Meds Active Scripts Cephalexin* (Keflex*) 500 Mg Capsule, 500 MG PO BID for 14 Days, CAP Prov:ELOY MURILLO 11/25/18 Ciprofloxacin Hcl* (Ciprofloxacin Hcl*) 500 Mg Tablet, 500 MG PO BID for 3 Days, TAB Prov:MARELY MENJIVAR DO 11/17/18 Diphenoxylate HCl/Atropine (Lomotil 2.5-0.025 mg Tablet) 1 Each Tablet, 1 TAB PO QID PRN for DIARRHEA, #10 TAB Prov:MARELY MENJIVAR DO 11/17/18 Ibuprofen* (Motrin*) 800 Mg Tab, 800 MG PO Q6H PRN for PAIN AND OR ELEVATED TEMP, #30 TAB Prov:KWABENA FISHER MD 11/11/18 Ondansetron (Ondansetron Odt) 4 Mg Tab.rapdis, 4 MG PO Q6H PRN for NAUSEA AND/OR VOMITING, #10 TAB Prov:MATHIEU ROSAS PA-C 11/09/18 Hydroxyzine Hcl* (Hydroxyzine Hcl*) 50 Mg Tablet, 50 MG PO Q6H PRN for ANXIETY, #30 TAB Prov:REGINE REYES 11/04/18 Acetaminophen* (Tylophen*) 500 Mg Capsule, 1 CAP PO Q6H PRN for PAIN AND OR ELEVATED TEMP, #20 CAP Prov:REGINE REYES 11/02/18 Allergies Allergies: Coded Allergies: No Known Allergy (Unverified , 11/25/18) PMhx/Soc Medical and Surgical Hx: pt denies Surgical Hx History of Surgery: No Anesthesia Reaction: No Hx Neurological Disorder: No Hx Respiratory Disorders: No Hx Cardiac Disorders: Yes (Hypertension) Hx Psychiatric Problems: Yes (Bipolar disorder) Hx Miscellaneous Medical Probl: No Hx Alcohol Use: No Hx Substance Use: No Hx Tobacco Use: No Smoking Status: Never smoker FmHx Family History: No diabetes, No coronary disease, No other Physical Exam Vitals Vital Signs Date Temp Pulse Resp B/P (MAP) Pulse Ox O2 O2 Flow FiO2 Time Delivery Rate 11/25/18 98.9 69 18 158/82 99 14:03 (107) Physical Exam Const: No acute distress Head: Atraumatic Eyes: Normal Conjunctiva ENT: Normal External Ears, Nose and Mouth. Neck: Full range of motion. No meningismus. Resp: Clear to auscultation bilaterally Cardio: Regular rate and rhythm, no murmurs Abd: Soft, non tender, non distended. Normal bowel sounds. McBurney's. Negative Huddleston's. Patient able to jump up and down on exam. Skin: No petechiae or rashes Back: No midline or flank tenderness Ext: No cyanosis, or edema Neur: Awake and alert Psych: Normal Mood and Affect Results 24 hrs Laboratory Tests Test 11/25/18 15:54 Bedside Urine pH (LAB) 7.0 Bedside Urine Protein (LAB) Negative Bedside Urine Glucose (UA) Negative Bedside Urine Ketones (LAB) Negative Bedside Urine Blood Trace-intact Bedside Urine Nitrite (LAB) Negative Bedside Urine Leukocyte Esterase (L 1+ POC Beta HCG, Qualitative NEGATIVE Current Medications Medications Dose Sig/Evette Start Time Status Last (Trade) Ordered Route PRN Stop Time Admin Dose Reason Admin Ceftriaxone 1 gm ONCE ONCE 11/25/18 DC Sodium IM 16:30 (Rocephin) 11/25/18 16:31 Lidocaine 5 ml ONCE ONCE 11/25/18 DC (Xylocaine INJ 16:30 1% (Mpf)) 11/25/18 16:31 Procedures/MDM MDM: Patients previous visit charts were reviewed. Patient has presented to the ER over a dozen times this monthwith different complaints. All imaging done has been WNL. Patient's abdominal exam was completely benign. Patient is ambulatory. Patient's vitals are within normal limits. Patient's lab work was within normal limits as well aside from possible UTI. Patient will be treated for UTI with ceftriaxone as well as 14 days of Keflex. I have low suspicion for acute coronary syndrome, AAA, mesenteric ischemia, lower lobe pneumonia, DKA, bowel perforation, cholecystitis, choledocholithiasis, ascending cholangitis, hepatic abscess, pancreatitis, PUD, splenic rupture, diverticulitis, pyelonephritis, nephrolithiasis, appendicitis,, [, ectopic , PID, ovarian torsion or tubo-ovarian abscess]. At this time, patient is stable for discharge and outpatient management. I have instructed the patient to follow-up with his/her primary care physician in 1-2 days. I have discussed with the patient the possibility of needing to see a specialist for further workup and imaging studies if symptoms persist. I have instructed the patient to promptly return to the ER for any new or worsening symptoms including but not limited to increased pain, fever, nausea, vomiting, weakness or LOC. The patient and/or family expressed understanding of and agreement with this plan. All questions were answered. Home care instructions were provided. DISCLAIMER: Inadvertent spelling and grammatical errors are likely due to EHR/dictation software use and do not reflect on the overall quality of patient care. Also, please note that the electronic time recorded on this note does not necessarily reflect the actual time of the patient encounter. Departure Diagnosis: Primary Impression: UTI (urinary tract infection) Condition: Stable ELOY MURILLO Nov 25, 2018 15:41
[2018-11-25] MEDS ORDERED: CEFTRIAXONE 1 GM INJ IM ONE (16:30)
[2018-11-25] MEDS ORDERED: LIDOCAINE 1% (MPF) 5 ML VIAL INJ ONE (16:30)
== END 2018-11-25 16:36 | disposition left against medical advice (07) ==
LOC: FTE 13:36
DX: N39.0 Urinary tract infection, site not specified (principal); I10 Essential (primary) hypertension
CPT/HCPCS: 81003; 81025; 87086; J0696; Z7502; Z7610

== ENCOUNTER 2018-11-26 03:16 | Emergency (ER) | payer OTHER ==
[~2018-11-26] VITALS: Ht 162.6 cm; Wt 77.7 kg
[2018-11-26 03:20] VITALS: BP 134/99; PULSE 75; RESP 18; Ht 162.6 cm; Wt 77.7 kg
--- NOTE | 2018-11-26 05:51 | ERD ---
ER Documentation Chief Complaint Chief Complaint Left chest wall sharp pain, dysuria,L pelvic pain HPI This is a 37 yo female patient who presents to the ER today stating at triage she is having chest wall pain, dysuria, pelvic pain. At time of evaluation she denies all of those symptoms and states she has "stomach" pain, pt would not stop texting on cell phone during interview. When asked what makes her pain better, she states, "walking." So I asked her if she would like to try to walk off the pain to which she said, "yes" and left the exam room. ROS All systems reviewed and are negative except as per history of present illness. Medications Home Meds Active Scripts Cephalexin* (Keflex*) 500 Mg Capsule, 500 MG PO BID for 14 Days, CAP Prov:ELOY MURILLO 11/25/18 Ciprofloxacin Hcl* (Ciprofloxacin Hcl*) 500 Mg Tablet, 500 MG PO BID for 3 Days, TAB Prov:MARELY MENJIVAR DO 11/17/18 Diphenoxylate HCl/Atropine (Lomotil 2.5-0.025 mg Tablet) 1 Each Tablet, 1 TAB PO QID PRN for DIARRHEA, #10 TAB Prov:MARELY MENJIVAR DO 11/17/18 Ibuprofen* (Motrin*) 800 Mg Tab, 800 MG PO Q6H PRN for PAIN AND OR ELEVATED TEMP, #30 TAB Prov:KWABENA FISHER MD 11/11/18 Ondansetron (Ondansetron Odt) 4 Mg Tab.rapdis, 4 MG PO Q6H PRN for NAUSEA AND/OR VOMITING, #10 TAB Prov:MATHIEU ROSAS PA-C 11/09/18 Hydroxyzine Hcl* (Hydroxyzine Hcl*) 50 Mg Tablet, 50 MG PO Q6H PRN for ANXIETY, #30 TAB Prov:REGINE REYES 11/04/18 Acetaminophen* (Tylophen*) 500 Mg Capsule, 1 CAP PO Q6H PRN for PAIN AND OR ELEVATED TEMP, #20 CAP Prov:REGINE REYES 11/02/18 Allergies Allergies: Coded Allergies: No Known Allergy (Unverified , 11/25/18) PMhx/Soc Medical and Surgical Hx: pt denies Surgical Hx History of Surgery: No Anesthesia Reaction: No Hx Neurological Disorder: No Hx Respiratory Disorders: No Hx Cardiac Disorders: Yes (Hypertension) Hx Psychiatric Problems: Yes (Bipolar disorder) Hx Miscellaneous Medical Probl: No Hx Alcohol Use: No Hx Substance Use: No Hx Tobacco Use: No Smoking Status: Never smoker FmHx Family History: diabetes Physical Exam Vitals Vital Signs Date Temp Pulse Resp B/P (MAP) Pulse Ox O2 O2 Flow FiO2 Time Delivery Rate 11/26/18 97.8 75 18 134/99 99 03:20 (111) Physical Exam Const: No acute distress Head: Atraumatic Eyes: Normal Conjunctiva ENT: Normal External Ears, Nose and Mouth. Neck: Full range of motion. No meningismus. Resp: Clear to auscultation bilaterally Cardio: Regular rate and rhythm, no murmurs Abd: Soft, non tender, non distended. Normal bowel sounds Skin: No petechiae or rashes Back: No midline or flank tenderness Ext: No cyanosis, or edema Neur: Awake and alert Psych: Normal Mood and Affect Results 24 hrs Laboratory Tests Test 11/26/18 04:36 POC Beta HCG, Qualitative NEGATIVE Procedures/MDM This 37 yo female patient is well known to this ER. She presents regulary to this and other ERs with similar complaints. Yesterday she was seen and treated for a UTI. Physical exam today does not reveal any abnormal findings. Pt appears stable and nontoxic. Equal respirations, skin pink, warm, dry. Preoccupied with cell phone, difficult to examine due to vague description of complaint and needs. Declines social problems specialist. States she wanted to try to walk away her discomfort and ambulated out of ED with steady gait, nad. Pt left results waiting area prior to receiving written ACI. Departure Diagnosis: Primary Impression: Multiple complaints Condition: Stable Referrals: [facility] (PCP) Additional Instructions: Thank you very much for allowing us to participate in your care. Your health and safety is our top priority at [facility]. Call your primary care doctor TOMORROW for an appointment during the next 2-4 days and bring all the information and medications prescribed. Have prescriptions filled and follow precisely the directions on the label. If the symptoms get worse and your provider is unavailable, return to the Emergency Department immediately. TOBY FLORES NP Nov 26, 2018 05:51
== END 2018-11-26 06:07 | disposition home or self-care (01) ==
LOC: FTE 03:16
DX: R07.89 Other chest pain (principal); I10 Essential (primary) hypertension; R10.2 Pelvic and perineal pain; R30.0 Dysuria
CPT/HCPCS: 81025; Z7502; 99282

== ENCOUNTER 2018-11-29 01:17 | Emergency (ER) | payer OTHER ==
[~2018-11-29] VITALS: Ht 162.6 cm; Wt 77.7 kg
[2018-11-29 01:27] VITALS: BP 138/91; PULSE 71; RESP 18; Ht 162.6 cm; Wt 77.7 kg
--- NOTE | 2018-11-29 01:54 | ERD ---
ER Documentation Chief Complaint Chief Complaint vaginal bleeding x 1 day. denies HPI This is a 37-year-old female who presents here in the emergency department with complaints of vaginal bleeding for about a day. Stated that she changed 2 vaginal pads in the last 24 hours. LMP: Unknown last normal menstrual period. A0. Denies headache, head injury, loss of consciousness, dizziness, neck pain, neck stiffness, throat pain, difficulty swallowing, difficulty breathing lying flat, shoulder pain, chest pain, back pain, abdominal pain, nausea, vomiting, constipation, diarrhea, urinary symptoms, or possibility being , loss of bowel and bladder control, trauma, injury, falls, difficulty walking due to pain, numbness or tingling sensation, calf pain, recent travel, recent major surgery in the last 3 weeks, calf pain, recent long travel, recent exposure to any illness, recent antibiotic use in the last 3 months, fever, chills, seizures. Social: Denies smoking, use of alcoholic beverages, use of illegal drugs. ROS All systems reviewed and are negative except as per history of present illness. Medications Home Meds Active Scripts Acetaminophen* (Tylophen*) 500 Mg Capsule, 1 CAP PO Q6H PRN for PAIN AND OR ELEVATED TEMP, #20 CAP Prov:REGINE REYES 11/29/18 Sulfamethoxazole/Trimethoprim* (Bactrim Ds* Tablet) 1 Each Tablet, 1 TAB PO BID for 7 Days, #14 TAB Prov:DARCIREGINE RUBIO 11/29/18 Cephalexin* (Keflex*) 500 Mg Capsule, 500 MG PO BID for 14 Days, CAP Prov:ELOY MURILLO 11/25/18 Ciprofloxacin Hcl* (Ciprofloxacin Hcl*) 500 Mg Tablet, 500 MG PO BID for 3 Days, TAB Prov:MARELY MENJIVAR DO 11/17/18 Diphenoxylate HCl/Atropine (Lomotil 2.5-0.025 mg Tablet) 1 Each Tablet, 1 TAB PO QID PRN for DIARRHEA, #10 TAB Prov:MARELY MENJIVAR DO 11/17/18 Ibuprofen* (Motrin*) 800 Mg Tab, 800 MG PO Q6H PRN for PAIN AND OR ELEVATED TEMP, #30 TAB Prov:KWABENA FISHER MD 11/11/18 Ondansetron (Ondansetron Odt) 4 Mg Tab.rapdis, 4 MG PO Q6H PRN for NAUSEA AND/OR VOMITING, #10 TAB Prov:MATHIEU ROSAS PA-C 11/09/18 Hydroxyzine Hcl* (Hydroxyzine Hcl*) 50 Mg Tablet, 50 MG PO Q6H PRN for ANXIETY, #30 TAB Prov:REGINE REYES 11/04/18 Acetaminophen* (Tylophen*) 500 Mg Capsule, 1 CAP PO Q6H PRN for PAIN AND OR ELEVATED TEMP, #20 CAP Prov:REGINE REYES 11/02/18 Allergies Allergies: Coded Allergies: No Known Allergy (Unverified , 11/25/18) PMhx/Soc History of Surgery: No Anesthesia Reaction: No Hx Neurological Disorder: No Hx Respiratory Disorders: No Hx Cardiac Disorders: Yes (Hypertension) Hx Psychiatric Problems: Yes (Bipolar disorder) Hx Miscellaneous Medical Probl: No Hx Alcohol Use: No Hx Substance Use: No Hx Tobacco Use: No Physical Exam Vitals Physical Exam Const: No acute distress Head: Atraumatic Eyes: Normal Conjunctiva. ENT: Normal External Ears, Nose and Mouth. Neck: Full range of motion. No meningismus. Resp: Clear to auscultation bilaterally Cardio: Regular rate and rhythm, no murmurs Abd: Soft, non tender, non distended. Normal bowel sounds. Negative Huddleston sign. Negative [place] sign (heel jar test). Negative psoas sign. Negative Rovsing sign. Able to jump 10 times without developing lower abdominal pain. No CVA tenderness. Ambulatory with steady gait and without pain to abdomen. Skin: No petechiae or rashes. Color appears normal for ethnicity. No skin tenting. No signs of severe dehydration. Back: No midline or flank tenderness Ext: No cyanosis, or edema Neur: Awake and alert. No neurological deficits. Psych: Normal Mood and Affect Results 24 hrs Laboratory Tests Test 11/29/18 02:00 11/29/18 02:12 11/29/18 02:13 11/29/18 02:40 Urine Color RED Urine Clarity CLOUDY Urine pH 6.0 Urine Specific 1.020 Lyman Urine Ketones NEGATIVE mg/dL Urine Nitrite NEGATIVE mg/dL Urine Bilirubin NEGATIVE mg/dL Urine 1+ mg/dL Urobilinogen Urine Leukocyte 2+ Mari/ul Esterase Urine Microscopic > 182 /HPF RBC Urine Microscopic 140 /HPF WBC Urine Squamous FEW /HPF Epithelial Cells Urine Bacteria FEW /HPF Urine Mucus FEW /HPF Urine Hemoglobin 3+ mg/dL Urine Glucose NEGATIVE mg/dL Urine Total 2+ mg/dl Protein Urine Opiates Negative Screen Urine Negative Barbiturates Urine Negative Amphetamines Screen Urine Negative Benzodiazepines Screen Urine Cocaine Negative Screen Urine Negative Cannabinoids Chlamydia NOT DETECTED trachomatis RNA (TMA) Chlamydia/GC SEE NOTE Comment Neisseria NOT DETECTED gonorrhoeae RNA (TMA) Bedside Urine pH 6.5 (LAB) Bedside Urine 2+ Protein (LAB) Bedside Urine Negative Glucose (UA) Bedside Urine Trace Ketones (LAB) Bedside Urine 3+ Blood Bedside Urine Negative Nitrite (LAB) Bedside Urine Trace Leukocyte Esteras e (L POC Beta HCG, NEGATIVE Qualitative White Blood Count 8.1 10^3/ul Red Blood Count 4.68 10^6/ul Hemoglobin 12.9 g/dl Hematocrit 38.4 % Mean Corpuscular 82.1 fl Volume Mean Corpuscular 27.6 pg Hemoglobin Mean Corpuscular 33.6 g/dl Hemoglobin Concen t Red Cell 13.5 % Distribution Width Platelet Count 267 10^3/UL Mean Platelet 10.0 fl Volume Immature 0.100 % Granulocytes % Neutrophils % 65.0 % Lymphocytes % 26.2 % Monocytes % 6.5 % Eosinophils % 1.5 % Basophils % 0.7 % Nucleated Red 0.0 /100WBC Blood Cells % Immature 0.010 10^3/ul Granulocytes # Neutrophils # 5.3 10^3/ul Lymphocytes # 2.1 10^3/ul Monocytes # 0.5 10^3/ul Eosinophils # 0.1 10^3/ul Basophils # 0.1 10^3/ul Nucleated Red 0.0 10^3/ul Blood Cells # Sodium Level 142 mmol/L Potassium Level 3.4 mmol/L Chloride Level 105 mmol/L Carbon Dioxide 29 mmol/L Level Anion Gap 8 Blood Urea 11 mg/dl Nitrogen Creatinine 0.79 mg/dl Est Glomerular > 60 mL/min Filtrat Rate mL/min Glucose Level 115 mg/dl Calcium Level 9.5 mg/dl Total Bilirubin 1.1 mg/dl Direct Bilirubin 0.00 mg/dl Indirect 1.1 mg/dl Bilirubin Aspartate Amino 29 IU/L Transf (AST/SGOT) Alanine 27 IU/L Aminotransferase (ALT/SGPT) Alkaline 94 IU/L Phosphatase Total Protein 7.2 g/dl Albumin 4.1 g/dl Globulin 3.10 g/dl Albumin/Globulin 1.32 Ratio Current Medications Medications Dose Sig/Evette Start Time Status Last (Trade) Ordered Route PRN Stop Time Admin Dose Reason Admin Potassium 20 meq ONCE STAT 11/29/18 DC Chloride PO 03:27 (Klor-Con 20) 11/29/18 03:28 Ondansetron 4 mg ONCE STAT 11/29/18 DC HCl (Zofran ODT 03:27 Odt) 11/29/18 03:28 1,000 mg ONCE ONCE 11/29/18 DC Azithromycin PO 04:00 (Zithromax) 11/29/18 04:00 Ceftriaxone 250 mg ONCE ONCE 11/29/18 DC Sodium IM 04:00 (Rocephin) 11/29/18 04:00 Procedures/MDM Diagnostic tests: POC urine : Negative. Urinalysis: UTI. Culture urine: Sent. Blood works: Reviewed. Treatment: K-Dur. Zofran. Ceftriaxone IM. Azithromycin. Re-evaluation: Denies chest pain, back pain, abdominal pain, pelvic pain, vagin al bleeding. No CVA tenderness. There is no bilateral lower extremity edema. No vomiting. Stated that she feels much better at this time and that she is ready to go home. Stated that she is comfortable to go home. Differential diagnosis I have low suspicion for sepsis, hemorrhage, renal failure, kidney stones, obstructing kidney stones, pyelonephritis. Final diagnosis: Hematuria. UTI. Prescription: Tylenol. Bactrim. Follow-up with PCP in the next 24-48 hours. Come back here in the emergency dep artment for any new symptoms or any worsening symptoms. All questions and concerns were answered. Patient and family members verbalized understanding and agreed with plan of care. Hemodynamically stable on discharge. Departure Diagnosis: Primary Impression: UTI (urinary tract infection) Additional Impression: Hematuria Condition: Stable Additional Instructions: Follow-up with PCP in the next 24-48 hours. Come back here in the emergency department for any new symptoms or any worsening symptoms. REGINE REYES Nov 29, 2018 01:54
[2018-11-29] MEDS ORDERED: POTASSIUM CHLORIDE (SR) 20 MEQ TAB PO STA (03:27)
[2018-11-29] MEDS ORDERED: ONDANSETRON (ODT) 4 MG TAB ODT STA (03:27)
[2018-11-29] MEDS ORDERED: AZITHROMYCIN 500 MG TAB PO ONE (04:00)
[2018-11-29] MEDS ORDERED: CEFTRIAXONE 250 MG INJ IM ONE (04:00)
== END 2018-11-29 03:59 | disposition home or self-care (01) ==
LOC: FTE 01:17
DX: N39.0 Urinary tract infection, site not specified (principal); R31.9 Hematuria, unspecified; I10 Essential (primary) hypertension
CPT/HCPCS: 80053; 80307; 81001; 81025; 85025; 87086; 87591; Z7502; 81003; 99283; J0696